=== PATIENT | female | born 1955 | race Caucasian/White ===

== ENCOUNTER 2020-05-12 12:58 | Observation (INO) ==
[2020-05-12] MEDS ORDERED: SODIUM CHLORIDE 0.9% 1000ML 1,000 ML IV STA (13:21)
[2020-05-12] MEDS ORDERED: FAMOTIDINE 20MG/5ML IV PUSH IV STA (13:21)
[2020-05-12] MEDS ORDERED: ONDANSETRON INJ 2 MG/ML 2 ML VIAL IV STA (13:21)
--- NOTE | 2020-05-12 13:26 | Emergency Department Note ---
Impression & Plan Acute cholecystitis, Epigastric abdominal pain ED Provider Note NAME: PRIYA MAK AGE: 64 SEX: F : 1955 ARRIVES VIA: Walk-In INFORMANT: [Patient] ED PROVIDER(S): [Blake Bae MD] CHIEF COMPLAINT: Abdominal pain HISTORY OF PRESENT ILLNESS: The patient is a 64-year-old female presents with 5 days of epigastric abdominal pain that radiates to the right ribs. The pain is a 7 on a scale of 1 out of 10 and constant. She notices it mostly at night when she is trying to sleep, she has not been able to sleep. There has been no nausea or vomiting but she has no appetite. She had some black stools but no bloody stools. She had a loose bowel movement today. She had chills but no fever. She has felt cold. There has been no cough or congestion. She has not been short of breath. No urinary complaints. She has no history of similar abdominal pain. She does have a history of reflux and she does intermittently use Prilosec. REVIEW OF SYSTEMS: See HPI for pertinent positives and negatives. A total of ten systems were reviewed and were otherwise negative. PMHx/PSHx: See Below SOCIAL HISTORY: See Below. PHYSICAL EXAM: GENERAL: Patient is in mild distress from pain. HEENT: No acute trauma, normocephalic atraumatic, mucous membranes moist, no nasal congestion, no scleral icterus. NECK: No stridor, no adenopathy, no meningismus, trachea is midline. LUNGS: Clear to auscultation bilaterally, no wheeze, no rhonchi, breath sounds equal. HEART: Without murmurs gallops or rubs, regular rate and rhythm. ABDOMEN: Soft, significantly tender in the epigastrium and right upper quadrant, bowel sounds positive, no hernias. EXTREMITIES: No cyanosis or edema, full range of motion of all the joints without pain or difficulty, no signs for acute trauma. NEUROLOGIC: Oriented x 3, no acute motor or sensory deficits, no focal weakness. SKIN: No rash, no jaundice, no diaphoresis. Rectal: Darker stool, heme-negative. DIFFERENTIAL DIAGNOSIS: Appendicitis, ovarian cyst, ovarian torsion, infections, diverticulitis, UTI, obstruction, mesenteric ischemia, aortic pathology, inflammatory bowel disease, renal colic, PUD, pancreatitis, biliary pathology, hernia, volvulus, constipation, as well as other pathologies. EMERGENCY DEPARTMENT COURSE/PROCEDURES: ECG: Indication was abdominal pain. The ECG shows a normal sinus rhythm with a rate of 75. There is no ST elevation, no PVCs. The QTc is 451. Continuous Cardiac Monitoring: An order was placed for continuous cardiac monitoring. The monitor shows a rate of 90 with normal sinus rhythm. MEDICAL DECISION MAKING: There is no leukocytosis or concerning anemia. There is a normal platelet count. Renal panel testing shows a slightly low potassium, no kidney failure. No liver enzyme elevation. No evidence for pancreatitis by our testing. ECG shows a sinus rhythm, no acute ischemia. Cardiac enzyme testing x1 is not consistent with acute cardiac injury. Covid testing returned negative. Chest film did not show pneumonia or free air. Abdominal and pelvis CT showed evid ence for acute cholecystitis. No bowel obstruction, no bowel perforation. On exam, the patient was quite uncomfortable with palpation of the right upper quadrant and epigastrium. She was not toxic or febrile. The patient was given IV saline, 1 L. She received IV Zosyn as empiric antibiotic coverage. She was given IV Zofran for nausea, IV morphine for pain. She received IV Pepcid. The patient has acute cholecystitis by history, exam and work-up. I did contact general surgery. The patient was seen in this ED by surgery and taken to the operating room. Case management has been consulted. The patient is aware of her findings. Past Med/Surg History Medical History Anxiety Depression GERD (gastroesophageal reflux disease) Hx of breast cancer dcis right breast no chemo/radiation Hyperlipidemia Hypothyroidism Osteoarthritis Sleep apnea no machine Surgical History History of hand surgery History of knee surgery Hx of arthroscopy right and left Hx of carpal tunnel repair right Hx of lumpectomy right breast Hx of tooth extraction Family History Mother Brain cancer Other Hypertension Denies family history of Ovarian cancer Breast cancer Colorectal cancer Social History Smoking Status: Never smoker Second Hand Exposure: No; Hx Alcohol Use: Yes Alcohol type: wine Hx Substance Use: No Preferred Language: German Communication Ability: Effective Reed Man Required: No Beliefs That Will Affect Care: None Current Living Situation: Spouse Feels Safe at Home: Yes Assistive Devices: Glasses Allergies Allergies Allergy/AdvReac Type Severity Reaction Status Date / Time No Known Allergies Allergy Verified 05/12/20 15:43 Home Meds Home Medications Medication Instructions Recorded Confirmed cholecalciferol (vitamin D3) 50 50 mcg PO DAILY 01/18/20 05/12/20 mcg (2,000 unit) capsule famotidine [Pepcid] 0 mg PO DAILY PRN 05/12/20 05/12/20 Previous Rx's Medication Instructions Recorded levothyroxine 75 mcg tablet 75 mcg PO DAILY #90 tab 05/16/19 sertraline 100 mg tablet 100 mg PO DAILY #90 tab 12/30/19 mecobalamin (vitamin B12) 1,000 1,000 mcg SUBLINGUAL DAILY #30 tab 01/18/20 mcg disintegrating tablet,sublingual Results & Data (ED) Vital Signs Vital Signs - 24 hr 05/12/20 13:01 05/12/20 13:29 05/12/20 15:03 Temperature 37.0 C Temperature Source Temporal Artery Scan Pulse Rate 89 90 Pulse Rate [Apical] Pulse Rhythm [Apical] Respiratory Rate 19 22 14 Respiratory Effort / Characteristics Non-Labored Non-Labored Respiratory Depth Normal Normal Respiratory Pattern Blood Pressure 122/70 Blood Pressure [Left Arm] 133/69 Blood Pressure Mean 87 Blood Pressure Mean [Left Arm] 90 Blood Pressure Position [Left Arm] Lying Pulse Oximetry 95 98 98 Oxygen Delivery Method Room Air Room Air Room Air Oxygen Flow Rate Sepsis Recent Fever Within 48 Hours No Sepsis New/Unexplained Change in Mental Status No Sepsis Action Taken by Nursing No Action Required 05/12/20 18:23 05/12/20 18:30 05/12/20 18:40 Temperature 36.5 C Temperature Source Temporal Artery Scan Temporal Artery Scan Temporal Artery Scan Pulse Rate Pulse Rate [Apical] 80 78 75 Pulse Rhythm [Apical] Regular Regular Regular Respiratory Rate 19 18 19 Respiratory Effort / Characteristics Non-Labored Spontaneous Non-Labored Spontaneous Non-Labored Spontaneous Respiratory Depth Normal Normal Normal Respiratory Pattern Regular Regular Regular Blood Pressure Blood Pressure [Left Arm] 110/69 122/60 120/59 L Blood Pressure Mean Blood Pressure Mean [Left Arm] 82 80 79 Blood Pressure Position [Left Arm] Semi-fowlers Semi-fowlers Semi-fowlers Pulse Oximetry 99 100 97 Oxygen Delivery Method Nasal Cannula Nasal Cannula Nasal Cannula Oxygen Flow Rate 4 4 3 Sepsis Recent Fever Within 48 Hours Sepsis New/Unexplained Change in Mental Status Sepsis Action Taken by Nursing 05/12/20 18:50 05/12/20 19:00 Temperature 36.5 C Temperature Source Temporal Artery Scan Temporal Artery Scan Pulse Rate Pulse Rate [Apical] 82 76 Pulse Rhythm [Apical] Regular Regular Respiratory Rate 18 21 Respiratory Effort / Characteristics Non-Labored Spontaneous Non-Labored Spontaneous Respiratory Depth Normal Normal Respiratory Pattern Regular Regular Blood Pressure Blood Pressure [Left Arm] 117/58 L 115/58 L Blood Pressure Mean Blood Pressure Mean [Left Arm] 77 77 Blood Pressure Position [Left Arm] Semi-fowlers Semi-fowlers Pulse Oximetry 97 97 Oxygen Delivery Method Nasal Cannula Nasal Cannula Oxygen Flow Rate 3 3 Sepsis Recent Fever Within 48 Hours Sepsis New/Unexplained Change in Mental Status Sepsis Action Taken by Intermediate Medications Current Medication List: was personally reviewed by me Laboratory Data Attestation: I reviewed the patient's lab results. Result diagrams: 05/12/20 13:25 05/12/20 13:25 Lab Results 05/12/20 05/12/20 05/12/20 Range/Units 13:25 13:25 15:37 WBC 9.81 (4.8-10.8) K/uL RBC 4.56 (4.2-5.4) M/uL Hgb 13.1 (12.0-16.0) g/dL Hct 37.6 (37-47) % MCV 82.5 (80-100) fL MCH 28.7 (25-34) pg MCHC 34.8 (32-36) g/dL RDW Std Deviation 41.8 (36.4-46.3) fL RDW Coeff of Veena 13.8 (11.5-14.5) % Plt Count 206 (130-400) K/uL MPV 8.5 (7.4-10.4) fL Immature Gran % (Auto) 0.2 % Neut % (Auto) 73.9 % Lymph % (Auto) 16.7 % [place] % (Auto) 8.5 % Eos % (Auto) 0.6 % Baso % (Auto) 0.1 % Neut # (Auto) 7.25 H (1.4-6.5) K/uL Lymph # (Auto) 1.64 (1.2-3.4) K/uL [place] # (Auto) 0.83 H (0.11-0.59) K/uL Eos # (Auto) 0.06 (0-0.5) K/uL Baso # (Auto) 0.01 (0-0.2) K/uL Immature Gran # (Auto) 0.02 (0.00-0.02) K/uL Sodium 133 L (136-145) mmol/L Potassium 3.4 L (3.5-5.1) mmol/L Chloride 99 (98-107) mmol/L Carbon Dioxide 27 (21-32) mmol/L Anion Gap 7.0 (3-11) BUN 11 (7-18) mg/dl Creatinine 0.85 (0.6-1.2) mg/dl Est Cr Clr Drug Dosing 55.1 ml/min Est GFR ( Amer) 82.8 Est GFR (Non-Af Amer) 71.4 BUN/Creatinine Ratio 13.5 (10-20) Glucose 105 H (70-99) mg/dl Calcium 9.0 (8.5-10.1) mg/dl Total Bilirubin 0.8 (0.2-1) mg/dl AST 22 (15-37) U/L ALT 24 (12-78) U/L Alkaline Phosphatase 63 (45-117) U/L Troponin I < 0.015 (0-0.045) ng/ml Total Protein 7.9 (6.4-8.2) gm/dl Albumin 3.7 (3.4-5.0) gm/dl Globulin 4.2 H (2.5-4.0) gm/dl Albumin/Globulin Ratio 0.9 (0.9-2) Lipase 99 (73-393) U/L COVID-19 Eval Order Covid19 IDNow [facility] SARS-CoV-2, RNA, NAAT (NEGATIVE) 05/12/20 Range/Units 15:37 WBC (4.8-10.8) K/uL RBC (4.2-5.4) M/uL Hgb (12.0-16.0) g/dL Hct (37-47) % MCV (80-100) fL MCH (25-34) pg MCHC (32-36) g/dL RDW Std Deviation (36.4-46.3) fL RDW Coeff of Veena (11.5-14.5) % Plt Count (130-400) K/uL MPV (7.4-10.4) fL Immature Gran % (Auto) % Neut % (Auto) % Lymph % (Auto) % [place] % (Auto) % Eos % (Auto) % Baso % (Auto) % Neut # (Auto) (1.4-6.5) K/uL Lymph # (Auto) (1.2-3.4) K/uL [place] # (Auto) (0.11-0.59) K/uL Eos # (Auto) (0-0.5) K/uL Baso # (Auto) (0-0.2) K/uL Immature Gran # (Auto) (0.00-0.02) K/uL Sodium (136-145) mmol/L Potassium (3.5-5.1) mmol/L Chloride (98-107) mmol/L Carbon Dioxide (21-32) mmol/L Anion Gap (3-11) BUN (7-18) mg/dl Creatinine (0.6-1.2) mg/dl Est Cr Clr Drug Dosing ml/min Est GFR ( Amer) Est GFR (Non-Af Amer) BUN/Creatinine Ratio (10-20) Glucose (70-99) mg/dl Calcium (8.5-10.1) mg/dl Total Bilirubin (0.2-1) mg/dl AST (15-37) U/L ALT (12-78) U/L Alkaline Phosphatase (45-117) U/L Troponin I (0-0.045) ng/ml Total Protein (6.4-8.2) gm/dl Albumin (3.4-5.0) gm/dl Globulin (2.5-4.0) gm/dl Albumin/Globulin Ratio (0.9-2) Lipase (73-393) U/L COVID-19 Eval Order SARS-CoV-2, RNA, NAAT NEGATIVE (NEGATIVE) Administered Medications Morphine Sulfate (Morphine Sulfate 4 Mg/Ml 1 Ml Carp\Vial) 4 mg IV Q15M PRN PRN Reason: Pain Stop: 05/26/20 13:20 Last Admin: 05/12/20 15:12 Dose: 4 mg Documented by: [id number] Admin: 05/12/20 14:08 Dose: 4 mg Documented by: [id number] Admin: 05/12/20 13:38 Dose: 4 mg Documented by: [id number] Discontinued Medications Bupivacaine HCl (Bupivacaine 0.5 % 5 Mg/1 Ml Mpf 30ml Vial) Confirm Administered Dose 30 ml .ROUTE .STK-MED ONE Stop: 05/12/20 15:59 Last Admin: 05/12/20 17:51 Dose: 18 ml Documented by: [id number] Cefazolin Sodium (Cefazolin 250 Mg/Ml 1 Gm Vial) Confirm Administered Dose 1,000 mg .ROUTE .STK-MED ONE Stop: 05/12/20 15:59 Last Admin: 05/12/20 17:52 Dose: 1,000 mg Documented by: [id number] Famotidine (Famotidine 20mg/5ml Iv Push) 20 mg IV ONE STA Stop: 05/12/20 13:22 Last Admin: 05/12/20 13:34 Dose: 20 mg Documented by: [id number] Heparin Sodium (Porcine) (Heparin Sod (Porcine) 5,000 Units/Ml Vial) Confirm Administered Dose 5,000 units .ROUTE .STK-MED ONE Stop: 05/12/20 15:59 Last Admin: 05/12/20 17:52 Dose: 5,000 units Documented by: [id number] Sodium Chloride (Nss 1000ml) 1,000 mls @ 999 mls/hr IV .Q1H1M STA Stop: 05/12/20 14:21 Last Admin: 05/12/20 13:33 Dose: 999 mls/hr Documented by: [id number] Piperacillin Sod/Tazobactam Sod (Zosyn) 4.5 gm in 120 mls @ 240 mls/hr IV NOW ONE Stop: 05/12/20 15:20 Last Admin: 05/12/20 16:06 Dose: 240 mls/hr Documented by: [id number] Ioversol (Ioversol 100ml) 94 ml IV ONCE ONE Stop: 05/12/20 14:23 Last Admin: 05/12/20 14:22 Dose: 94 ml Documented by: [id number] Ondansetron HCl (Ondansetron Inj 2 Mg/Ml 2 Ml Vial) 4 mg IV NOW STA Stop: 05/12/20 13:22 Last Admin: 05/12/20 13:35 Dose: 4 mg Documented by: [id number] Imaging Data Radiologist's Impression: XR chest 1V portable HISTORY: 64 years-old Female abd pain chest and abdominal pain COMPARISON: Chest radiographs 07/31/2011 TECHNIQUE: Portable AP view of the chest FINDINGS: Cardiomediastinal and hilar silhouettes are within normal limits. Small hiatal hernia. Moderate hemidiaphragmatic elevation. No pneumothorax, pleural effusion or overt pulmonary edema. Mild right basilar opacities. Left shoulder rotator cuff calcific tendinosis. Degenerative changes of the shoulders and spine. IMPRESSION: 1. Mild right basilar opacities favor atelectasis. 2. Cardiomegaly. 3. Small hiatal hernia. ABDOMEN AND PELVIS CT WITH IV CONTRAST CT DOSE: 448.46 mGy.cm HISTORY: Acute epigastric abdominal pain with chills epig abd pain, chills TECHNIQUE: Multiaxial CT images of the abdomen and pelvis were performed following the IV administration of 94 cc of Optiray 320, A dose lowering technique was utilized adhering to the principles of ALARA. COMPARISON STUDY: None. FINDINGS: The imaged inferior cardiac chambers are mildly enlarged. Mild bibasilar ground glass densities suggest atelectasis. There is no pneumatosis or pneumoperitoneum. The spleen is enlarged measuring 16.2 cm in length. Unremarkable pancreas and adrenal glands. Gallbladder is distended measuring up to 9.3 cm and demonstrates wall thickening measuring up to 6 mm. Pericholecystic stranding with trace edema. No definite cholelithiasis. There is wall thickening of the common bile duct. No biliary ductal dilation. Unremarkable liver. There is patency of the hepatic and portal veins. Unremarkable kidneys. Urinary bladder is within normal limits. Unremarkable uterus. No adnexal mass lesions. Numerous phleboliths of the pelvis. No abdominal aortic aneurysm or adenopathy. Small hiatal hernia. Distal esophageal wall thickening. Prominent periesophageal lymph nodes measuring up to 7 mm. Mild wall thickening of the distal stomach and proximal duodenum is likely reactive. Air-fluid levels are noted within the right hemicolon and also within a few loo ps of nondilated small bowel. Fluid-filled appendix measures up to 6 mm and demonstrates air within the lumen. No definite evidence of acute appendicitis. Unremarkable soft tissues. No acute fracture. IMPRESSION: 1. Distended gallbladder with wall thickening and pericholecystic edema/trace free fluid is compatible with acute cholecystitis. 2. Mild wall thickening of the common bile duct may be reactive or reflect associated cholangitis. No biliary ductal dilation. 3. No bowel obstruction or bowel wall thickening. 4. Noninflamed appendix. 5. Small hiatal hernia. 6. Splenomegaly. Discharge Plan Visit Data Chief Complaint: Abdominal Pain Stated Complaint: AB PAIN ED Provider: Blake Bae Discharge Problem: Acute cholecystitis, Epigastric abdominal pain Patient Disposition: Admitted As Inpatient Condition: Fair Discharge Instructions Interventions: ED Discharge Assessment Last Done: 05/12/20 16:18 Forms Stand Alone Forms: [employer] Prescriptions Prescriptions: No Action levothyroxine 75 mcg tablet 75 mcg PO DAILY Qty: 90 RF: 3 sertraline 100 mg tablet 100 mg PO DAILY Qty: 90 RF: 3 cholecalciferol (vitamin D3) 50 mcg (2,000 unit) capsule 50 mcg PO DAILY RF: 0 mecobalamin (vitamin B12) 1,000 mcg tablet,disintegrating 1,000 mcg sublingual DAILY Qty: 30 RF: 0 famotidine [Pepcid] 20 mg Tablet 0 mg PO DAILY PRN (Reason: Abdominal Pain) RF: 0 Referrals Referrals: Kyra Uribe MD [Primary Care Provider] -
[2020-05-12 13:38] LABS: Basophils # (auto) 0.01 K/uL (0-0.2); Basophils % (auto) 0.1 %; Eosinophils # (auto) 0.06 K/uL (0-0.5); Eosinophils % (auto) 0.6 %; Hematocrit (blood only) 37.6 % (37-47); Hemoglobin 13.1 g/dL (12.0-16.0); Immature Granulocytes # (auto) 0.02 K/uL (0.00-0.02); Immature Granulocytes % (auto) 0.2 %; Lymphocytes # (auto) 1.64 K/uL (1.2-3.4); Lymphocytes % (auto) 16.7 %; Mean Corpuscular Hemoglobin 28.7 pg (25-34); Mean Corpuscular Hgb Conc 34.8 g/dL (32-36); Mean Corpuscular Volume 82.5 fL (80-100); Mean Platelet Volume 8.5 fL (7.4-10.4); Monocytes # (auto) 0.83 K/uL (0.11-0.59); Monocytes % (auto) 8.5 %; Neutrophils # (auto) 7.25 K/uL (1.4-6.5); Neutrophils % (auto) 73.9 %; Platelet Count 206 K/uL (130-400); RDW Coefficient of Variation 13.8 % (11.5-14.5); RDW Standard Deviation 41.8 fL (36.4-46.3); Red Blood Count 4.56 M/uL (4.2-5.4); White Blood Count 9.81 K/uL (4.8-10.8)
[2020-05-12] MEDS: MoRPHine SULFATE 4 MG/ML 1 ML CARP\\VIAL IV PRN ×3 (13:38→15:12)
--- NOTE | 2020-05-12 14:04 | XRay Report ---
XR chest 1V portable HISTORY: 64 years-old Female abd pain chest and abdominal pain COMPARISON: Chest radiographs 07/31/2011 TECHNIQUE: Portable AP view of the chest FINDINGS: Cardiomediastinal and hilar silhouettes are within normal limits. Small hiatal hernia. Moderate hemid iaphragmatic elevation. No pneumothorax, pleural effusion or overt pulmonary edema. Mild right basila r opacities. Left shoulder rotator cuff calcific tendinosis. Degenerative changes of the shoulders an d spine. IMPRESSION: 1. Mild right basilar opacities favor atelectasis. 2. Cardiomegaly. 3. Small hiatal hernia. ACT 112: Negative or not required by law. The above report was generated using voice recognition software. It may contain grammatical, syntax o r spelling errors. Electronically signed by: Tomas Chaudhary M.D. 05/12/2020 2:02 PM
[2020-05-12 14:06] LABS: Alanine Aminotransferase 24 U/L (12-78); Albumin Level 3.7 gm/dl (3.4-5.0); Aspartate Aminotransferase 22 U/L (15-37); BUN Creatinine Ratio 13.5 (10-20); Blood Urea Nitrogen 11 mg/dl (7-18); Carbon Dioxide 27 mmol/L (21-32); Chloride 99 mmol/L (98-107); Creatinine Clr Calc Pharmacy 55.1 ml/min; Est GFR (African American) 82.8; Est GFR (Non-African American) 71.4; Glucose 105 mg/dl (70-99); Lipase 99 U/L (73-393); Potassium 3.4 mmol/L (3.5-5.1); Sodium 133 mmol/L (136-145)
[2020-05-12 14:10] LABS: Albumin Globulin Ratio 0.9 (0.9-2); Alkaline Phosphatase 63 U/L (45-117); Bilirubin,Total 0.8 mg/dl (0.2-1); Globulin 4.2 gm/dl (2.5-4.0); Total Protein 7.9 gm/dl (6.4-8.2); Troponin I < 0.015 ng/ml (0-0.045)
[2020-05-12] MEDS ORDERED: OPTIRAY 320 100ml IV ONE (14:22)
--- NOTE | 2020-05-12 14:41 | CT Scan Report ---
ABDOMEN AND PELVIS CT WITH IV CONTRAST CT DOSE: 448.46 mGy.cm HISTORY: Acute epigastric abdominal pain with chills epig abd pain, chills TECHNIQUE: Multiaxial CT images of the abdomen and pelvis were performed following the IV administrat ion of 94 cc of Optiray 320, A dose lowering technique was utilized adhering to the principles of AL WANDA. COMPARISON STUDY: None. FINDINGS: The imaged inferior cardiac chambers are mildly enlarged. Mild bibasilar ground glass densi ties suggest atelectasis. There is no pneumatosis or pneumoperitoneum. The spleen is enlarged measuri ng 16.2 cm in length. Unremarkable pancreas and adrenal glands. Gallbladder is distended measuring up to 9.3 cm and demonstrates wall thickening measuring up to 6 mm. Pericholecystic stranding with trac e edema. No definite cholelithiasis. There is wall thickening of the common bile duct. No biliary jaquan page dilation. Unremarkable liver. There is patency of the hepatic and portal veins. Unremarkable kidneys. Urinary bladder is within normal limits. Unremarkable uterus. No adnexal mass l esions. Numerous phleboliths of the pelvis. No abdominal aortic aneurysm or adenopathy. Small hiatal hernia. Distal esophageal wall thickening. Prominent periesophageal lymph nodes measuring up to 7 mm. Mild wall thickening of the distal stomach and proximal duodenum is likely reactive. Air-fluid level s are noted within the right hemicolon and also within a few loops of nondilated small bowel. Fluid-f illed appendix measures up to 6 mm and demonstrates air within the lumen. No definite evidence of acu te appendicitis. Unremarkable soft tissues. No acute fracture. IMPRESSION: 1. Distended gallbladder with wall thickening and pericholecystic edema/trace free fluid is compatibl e with acute cholecystitis. 2. Mild wall thickening of the common bile duct may be reactive or reflect associated cholangitis. No biliary ductal dilation. 3. No bowel obstruction or bowel wall thickening. 4. Noninflamed appendix. 5. Small hiatal hernia. 6. Splenomegaly. ACT 112: Negative or not required by law. The above report was generated using voice recognition software. It may contain grammatical, syntax o r spelling errors. Electronically signed by: Tomas Chaudhary M.D. 05/12/2020 2:40 PM
[2020-05-12] MEDS ORDERED: PIPERACILL/TAZOBAC CONSULT ACTIVE PRN (14:51)
[2020-05-12] MEDS ORDERED: PIPERACILLIN/TAZOBACTAM 4.5 GM/120 ML BAG IV ONE (14:51)
[2020-05-12] MEDS ORDERED: HEPARIN SOD (PORCINE) 5,000 UNITS/ML VIAL ONE (15:58)
[2020-05-12] MEDS ORDERED: BUPIVACAINE 0.5 % 5 MG/1 ML MPF 30ML VIAL ONE (15:58)
--- NOTE | 2020-05-12 16:09 | History & Physical Report ---
Date of Service May 12, 2020 Assessment & Plan (1) Cholecystitis: Admission and Anticipated Discharge Date Admission Date: This patient has right upper quadrant pain and tenderness and a CT scan indicative of acute cholecystitis. Her white blood cell count is not elevated however. We discussed the options of antibiotics versus performing a laparoscopic cholecystectomy with the possible need to convert to an open procedure especially since she has had symptoms for 5 days. I explained to her the possible complications and answered her questions. She has signed a consent form. History of Present Illness Chief Complaint: Right upper quadrant abdominal pain Primary Care Provider: Kyra Uribe MD This 64-year-old female presented to the emergency room with a complaint of pain in the right upper quadrant that has been present now for 5 days. Began as a dull ache about over last evening and today the pain became much more sharp and less bearable. She has not had pain like this before. She did have some nausea. She tried to eat some toast yesterday and vomited. She has not had any hematemesis. There is no history of right upper quadrant pain but she does have a long history of GERD. She has not had any change in her bowel habits. She denies melena hematochezia. She has not had any urinary symptoms. Allergies Allergy/AdvReac Type Severity Reaction Status Date / Time No Known Allergies Allergy Verified 05/12/20 15:43 Home Medications Medication Instructions Recorded Confirmed Type levothyroxine 75 mcg tablet 75 mcg PO DAILY #90 tab 05/16/19 05/12/20 Rx sertraline 100 mg tablet 100 mg PO DAILY #90 tab 12/30/19 05/12/20 Rx cholecalciferol (vitamin D3) 50 50 mcg PO DAILY 01/18/20 05/12/20 History mcg (2,000 unit) capsule mecobalamin (vitamin B12) 1,000 1,000 mcg SUBLINGUAL DAILY #30 tab 01/18/20 05/12/20 Rx mcg disintegrating tablet,sublingual famotidine [Pepcid] 0 mg PO DAILY PRN 05/12/20 05/12/20 History Past Med/Surg History Medical History (Updated 05/12/20 @ 16:10 by Eldon Conklin MD) Anxiety Depression GERD (gastroesophageal reflux disease) Hx of breast cancer dcis right breast no chemo/radiation Hyperlipidemia Hypothyroidism Osteoarthritis Sleep apnea no machine Surgical History History of hand surgery History of knee surgery Hx of arthroscopy right and left Hx of carpal tunnel repair right Hx of lumpectomy right breast Hx of tooth extraction Family History Mother Brain cancer Other Hypertension Denies family history of Ovarian cancer Breast cancer Colorectal cancer Social History Smoking Status: Never smoker Second Hand Exposure: No; Hx Alcohol Use: Yes Alcohol type: wine Hx Substance Use: No Preferred Language: Turkish Communication Ability: Effective Senior Account Clerk Required: No Beliefs That Will Affect Care: None Current Living Situation: Spouse Feels Safe at Home: Yes Assistive Devices: Glasses Review of Systems Review of Systems: All systems reviewed & are unremarkable except as noted in HPI & below Physical Exam Constitutional: no acute distress Neck: trachea midline, no thyromegaly Respiratory: normal respiratory effort, lungs clear to auscultation Cardiovascular: Rate/Rhythm: regular rate and regular rhythm Gastrointestinal (Abdomen): Inspection/Auscultation: normal bowel sounds; abdomen not distended Percussion/Palpation: + abdomen tender (Very tender in the right upper quadrant to minimal palpation) and abdomen soft Skin: no rashes, warm and dry Results & Data Results & Data ([facility]) Vital Signs (Past 12 Hours) Vital Signs Temp Pulse Resp BP BP Pulse Ox 05/12/20 15:03 14 133/69 98 05/12/20 13:29 90 22 98 05/12/20 13:01 37.0 C 89 19 122/70 95 Laboratory Results 05/12/20 05/12/20 05/12/20 Range/Units 15:37 15:37 13:25 WBC (4.8-10.8) K/uL RBC (4.2-5.4) M/uL Hgb (12.0-16.0) g/dL Hct (37-47) % MCV (80-100) fL MCH (25-34) pg MCHC (32-36) g/dL RDW Std Deviation (36.4-46.3) fL RDW Coeff of Veena (11.5-14.5) % Plt Count (130-400) K/uL MPV (7.4-10.4) fL Immature Gran % (Auto) % Neut % (Auto) % Lymph % (Auto) % Labette % (Auto) % Eos % (Auto) % Baso % (Auto) % Neut # (Auto) (1.4-6.5) K/uL Lymph # (Auto) (1.2-3.4) K/uL Labette # (Auto) (0.11-0.59) K/uL Eos # (Auto) (0-0.5) K/uL Baso # (Auto) (0-0.2) K/uL Immature Gran # (Auto) (0.00-0.02) K/uL Sodium 133 L (136-145) mmol/L Potassium 3.4 L (3.5-5.1) mmol/L Chloride 99 (98-107) mmol/L Carbon Dioxide 27 (21-32) mmol/L Anion Gap 7.0 (3-11) BUN 11 (7-18) mg/dl Creatinine 0.85 (0.6-1.2) mg/dl Est Cr Clr Drug Dosing 55.1 ml/min Est GFR ( Amer) 82.8 Est GFR (Non-Af Amer) 71.4 BUN/Creatinine Ratio 13.5 (10-20) Glucose 105 H (70-99) mg/dl Calcium 9.0 (8.5-10.1) mg/dl Total Bilirubin 0.8 (0.2-1) mg/dl AST 22 (15-37) U/L ALT 24 (12-78) U/L Alkaline Phosphatase 63 (45-117) U/L Troponin I < 0.015 (0-0.045) ng/ml Total Protein 7.9 (6.4-8.2) gm/dl Albumin 3.7 (3.4-5.0) gm/dl Globulin 4.2 H (2.5-4.0) gm/dl Albumin/Globulin Ratio 0.9 (0.9-2) Lipase 99 (73-393) U/L COVID-19 Eval [facility] SARS-CoV-2, RNA, NAAT NEGATIVE (NEGATIVE) 05/12/20 Range/Units 13:25 WBC 9.81 (4.8-10.8) K/uL RBC 4.56 (4.2-5.4) M/uL Hgb 13.1 (12.0-16.0) g/dL Hct 37.6 (37-47) % MCV 82.5 (80-100) fL MCH 28.7 (25-34) pg MCHC 34.8 (32-36) g/dL RDW Std Deviation 41.8 (36.4-46.3) fL RDW Coeff of Veena 13.8 (11.5-14.5) % Plt Count 206 (130-400) K/uL MPV 8.5 (7.4-10.4) fL Immature Gran % (Auto) 0.2 % Neut % (Auto) 73.9 % Lymph % (Auto) 16.7 % Labette % (Auto) 8.5 % Eos % (Auto) 0.6 % Baso % (Auto) 0.1 % Neut # (Auto) 7.25 H (1.4-6.5) K/uL Lymph # (Auto) 1.64 (1.2-3.4) K/uL Labette # (Auto) 0.83 H (0.11-0.59) K/uL Eos # (Auto) 0.06 (0-0.5) K/uL Baso # (Auto) 0.01 (0-0.2) K/uL Immature Gran # (Auto) 0.02 (0.00-0.02) K/uL Sodium (136-145) mmol/L Potassium (3.5-5.1) mmol/L Chloride (98-107) mmol/L Carbon Dioxide (21-32) mmol/L Anion Gap (3-11) BUN (7-18) mg/dl Creatinine (0.6-1.2) mg/dl Est Cr Clr Drug Dosing ml/min Est GFR ( Amer) Est GFR (Non-Af Amer) BUN/Creatinine Ratio (10-20) Glucose (70-99) mg/dl Calcium (8.5-10.1) mg/dl Total Bilirubin (0.2-1) mg/dl AST (15-37) U/L ALT (12-78) U/L Alkaline Phosphatase (45-117) U/L Troponin I (0-0.045) ng/ml Total Protein (6.4-8.2) gm/dl Albumin (3.4-5.0) gm/dl Globulin (2.5-4.0) gm/dl Albumin/Globulin Ratio (0.9-2) Lipase (73-393) U/L COVID-19 Eval Order SARS-CoV-2, RNA, NAAT (NEGATIVE) Diagnostic Findings ABDOMEN AND PELVIS CT WITH IV CONTRAST CT DOSE: 448.46 mGy.cm HISTORY: Acute epigastric abdominal pain with chills epig abd pain, chills TECHNIQUE: Multiaxial CT images of the abdomen and pelvis were performed following the IV administration of 94 cc of Optiray 320, A dose lowering technique was utilized adhering to the principles of ALARA. COMPARISON STUDY: None. FINDINGS: The imaged inferior cardiac chambers are mildly enlarged. Mild bibasilar ground glass densities suggest atelectasis. There is no pneumatosis or pneumoperitoneum. The spleen is enlarged measuring 16.2 cm in length. Unremarkable pancreas and adrenal glands. Gallbladder is distended measuring up to 9.3 cm and demonstrates wall thickening measuring up to 6 mm. Pericholecystic stranding with trace edema. No definite cholelithiasis. There is wall thickening of the common bile duct. No biliary ductal dilation. Unremarkable liver. There is patency of the hepatic and portal veins. Unremarkable kidneys. Urinary bladder is within normal limits. Unremarkable uterus. No adnexal mass lesions. Numerous phleboliths of the pelvis. No abdominal aortic aneurysm or adenopathy. Small hiatal hernia. Distal esophageal wall thickening. Prominent periesophageal lymph nodes measuring up to 7 mm. Mild wall thickening of the distal stomach and proximal duodenum is likely reactive. Air-fluid levels are noted within the right hemicolon and also within a few loops of nondilated small bowel. Fluid-filled appendix measures up to 6 mm and demonstrates air within the lumen. No definite evidence of acute appendicitis. Unremarkable soft tissues. No acute fracture. IMPRESSION: 1. Distended gallbladder with wall thickening and pericholecystic edema/trace free fluid is compatible with acute cholecystitis. 2. Mild wall thickening of the common bile duct may be reactive or reflect associated cholangitis. No biliary ductal dilation. 3. No bowel obstruction or bowel wall thickening. 4. Noninflamed appendix. 5. Small hiatal hernia. 6. Splenomegaly
[2020-05-12] MEDS ORDERED: MIDAZOLAM HCL 1 MG/ML 2ML VIAL ONE (16:12)
[2020-05-12] MEDS ORDERED: DEXAMETHASONE SOD INJ 4 MG/ML VIAL ONE (16:13)
[2020-05-12] MEDS ORDERED: fentaNYL citrate 100 MCG/2 ML VIAL ONE ×2 (16:13→17:49)
[2020-05-12] MEDS ORDERED: PROPOFOL IV EMULSION 10 MG/ML 20 ML VIAL IV ONE (16:13)
[2020-05-12] MEDS ORDERED: ONDANSETRON INJ 2 MG/ML 2 ML VIAL ONE (16:13)
[2020-05-12] MEDS ORDERED: ROCURONIUM BROMIDE 10 MG/ML 5 ML VIAL IV ONE ×5 (16:13)
[2020-05-12] MEDS ORDERED: LIDOCAINE HCL 2% 2 ML VIAL/AMP(20MG/ML) INFIL ONE (16:14)
[2020-05-12] MEDS ORDERED: GLYCOPYRROLATE 0.2 MG/ML VIAL ONE (16:14)
[2020-05-12] MEDS ORDERED: NEOSTIGMINE METHYLSULFATE 5 MG/5 ML SYR ONE (16:14)
--- NOTE | 2020-05-12 16:28 | Anesthesiology Consultation ---
Date of Service May 12, 2020 Assessment & Plan Chart Review Chart Review: Acceptable Risk for Surgery Consults Requested none History Surgery Operation Date: 05/12/20 17:00 Proposed Procedures p Laparoscopic Cholecystectomy - Eldon Conklin MD Height/Weight Height: 4 ft 11 in Weight: 69.2 kg Allergies Allergy/AdvReac Type Severity Reaction Status Date / Time No Known Allergies Allergy Verified 05/12/20 15:43 Medications Home Medications Medication Instructions Recorded Confirmed Last Taken levothyroxine 75 mcg tablet 75 mcg PO DAILY #90 tab 05/16/19 05/12/20 05/12/20 sertraline 100 mg tablet 100 mg PO DAILY #90 tab 12/30/19 05/12/20 05/12/20 cholecalciferol (vitamin D3) 50 50 mcg PO DAILY 01/18/20 05/12/20 05/12/20 mcg (2,000 unit) capsule mecobalamin (vitamin B12) 1,000 1,000 mcg SUBLINGUAL DAILY #30 tab 01/18/20 05/12/20 05/12/20 mcg disintegrating tablet,sublingual famotidine [Pepcid] 0 mg PO DAILY PRN 05/12/20 05/12/20 05/12/20 Active Medications Generic Name Dose Route Start Last Admin Trade Name Freq PRN Reason Stop Dose Admin Morphine Sulfate 4 mg 05/12/20 13:21 05/12/20 15:12 Morphine Sulfate 4 Mg/Ml 1 Ml Carp\Vial IV 05/26/20 13:20 4 mg Q15M PRN Administration Pain NPO Date Last Intake of Fluids: 05/11/20 Date Last Intake of Solids: 05/11/20 Past Medical History Medical History (Updated 05/12/20 @ 16:10 by Eldon Conklin MD) Anxiety Depression GERD (gastroesophageal reflux disease) Hx of breast cancer dcis right breast no chemo/radiation Hyperlipidemia Hypothyroidism Osteoarthritis Sleep apnea no machine Past Family History Family History Mother Brain cancer Other Hypertension Denies family history of Ovarian cancer Breast cancer Colorectal cancer Past Surgical History Surgical History History of hand surgery History of knee surgery Hx of arthroscopy right and left Hx of carpal tunnel repair right Hx of lumpectomy right breast Hx of tooth extraction Social History Smoking Status: Never smoker Hx Alcohol Use: Yes Alcohol type: wine alcohol intake frequency: a few times a week Hx Substance Use: No substance use type: does not use Physical Exam Vital Signs Last Vital Signs Temp 37.0 C 05/12/20 13:01 Pulse 90 05/12/20 13:29 Resp 14 05/12/20 15:03 BP 133/69 05/12/20 15:03 Pulse Ox 98 05/12/20 15:03 Testing Laboratory Results 05/12/20 13:25 05/12/20 13:25
[2020-05-12] MEDS ORDERED: ePHEDrine sulfate 50 MG/ML SYR ONE (17:07)
[2020-05-12] MEDS ORDERED: ePHEDrine sulfate 50 MG/ML AMP IV PRN (17:37)
[2020-05-12] MEDS ORDERED: ATROPINE SULFATE 0.1 MG/ML 10ML SYR IV PRN (17:37)
[2020-05-12] MEDS ORDERED: ONDANSETRON INJ 2 MG/ML 2 ML VIAL IV PRN (17:37)
[2020-05-12] MEDS ORDERED: HYDROmorphone INJ 2 MG/ML SYR/VIAL IV PRN (17:37)
[2020-05-12] MEDS ORDERED: fentaNYL citrate 100 MCG/2 ML VIAL IV PRN (17:37)
--- NOTE | 2020-05-12 18:15 | Post Operative Brief Note ---
Immediate Post Op Note v1 Date of Surgery May 12, 2020 Pre & Post Diagnosis Operation Date: 05/12/20 17:00 Pre-Op Diagnosis: Cholecystitis Post-Op Diagnosis: Cholecystitis I identified the patient and participated in the time-out.: Yes Procedure Operation Date: 05/12/20 17:00 Actual Procedures p Laparoscopic Cholecystectomy(Not Applicable) - Eldon Conklin MD Surgeon Eldon Conklin MD Tunnel Worker None Estimated Blood Loss 10 Findings Consistent with Post-Op Diagnosis
--- NOTE | 2020-05-12 18:51 | Anesthesiology Progress Note ---
Date of Service May 12, 2020 Anesthesia Post Procedure Vital Signs Vital Signs: Temp Pulse Pulse Resp BP BP Pulse Ox 05/12/20 18:40 75 19 120/59 L 97 05/12/20 18:30 78 18 122/60 100 05/12/20 18:23 36.5 C 80 19 110/69 99 05/12/20 15:03 14 133/69 98 05/12/20 13:29 90 22 98 05/12/20 13:01 37.0 C 89 19 122/70 95 Pain Intensity Abdomen: Pain Intensity: 7 Transfer of Care Handoff Completed per policy Notes Mental Status: alert / awake / arousable and participated in evaluation Patient Amnestic to Procedure: Yes Nausea / Vomiting: adequately controlled Pain: adequately controlled Airway Patency, RR, SpO2: stable & adequate BP & HR: stable & adequate Hydration State: stable & adequate Anesthetic Complications: no major complications apparent
[2020-05-12] MEDS ORDERED: MoRPHine SULFATE 4 MG/ML 1 ML CARP\\VIAL IV PRN (19:59)
[2020-05-12] MEDS: cefOXitin 2,000 MG in DEXTROSE 5% 50 ML IV SCH (20:39)
[2020-05-12] MEDS: SODIUM CHLORIDE 0.9% 1000ML 1,000 ML IV SCH (20:39)
[2020-05-12 22:27] LABS: Appearance Urine Clear (Clear); Bacteria Urine Automated Negative (Negative); Bilirubin Urine Negative (Negative); Blood Urine 1+ (Negative); Cast Urine Automated 0 /lpf (0-5); Color Urine Yellow; Epithelial Cell Urine Auto >30 /lpf (0-5); Glucose Urine UA Negative (Negative); Ketones Urine Negative (Negative); Leukocyte Esterase Urine Negative (Negative); Nitrite Urine Negative (Negative); Protein Urine Negative (Negative); RBC Urine Automated 0-4 /hpf (0-4); Specific Gravity Urine 1.012 (1.000-1.030); Urobilinogen Urine Negative (Negative); pH Urine 5.5 (4.5-7.5)
--- NOTE | 2020-05-13 03:29 | Operative Report (OR) ---
DATE OF OPERATION: 05/12/2020 PREOPERATIVE DIAGNOSIS: Acute cholecystitis. POSTOPERATIVE DIAGNOSES: Cholelithiasis and acute cholecystitis. PROCEDURE: Laparoscopic cholecystectomy. SURGEON: Eldon Conklin MD FINDINGS: The gallbladder was dilated. The wall was thickened. The cystic duct was mildly dilated. There were stones within the lumen of the gallbladder. There was a lot of inflammatory response around the gallbladder, although no adhesions. There was a lot of edema within the tissues around the gallbladder. The liver was of normal size and contour and the visible bowel appeared normal. TECHNIQUE: The patient was given a general anesthetic and the area was prepped and draped in the usual sterile fashion. Trocar sites below the umbilicus were chosen and the skin was anesthetized with 0.5% Marcaine. Skin incision was made and was carried down through the subcutaneous tissue to the fascia which was grasped with 2 Perri clamps and incised between. The peritoneum was identified, incised and introducer was placed bluntly. The abdomen was then insufflated to a pressure of 15 mmHg with carbon dioxide. The sites for the upper midline, midclavicular and anterior axillary introducers were chosen. The skin in layers were anesthetized with the same local. Skin incisions were made and the introducers were placed under direct vision through those incisions. I could not grasp the gallbladder for traction and some of the drainage needle was passed under direct vision. The tip of the needle was placed into the gallbladder. The gallbladder was drained. There was white bile that returned. The gallbladder was then able to be grasped. I then was able to elevate the infundibulum of the gallbladder and opened the thickened peritoneum beneath it. I then opened the peritoneum working laterally up along the infundibulum to the body of the gallbladder. I then was able to separate the wall of the gallbladder away from the liver on that lateral side. I then worked anteriorly over the anterior surface. I peeled the tissues towards the common bile duct. I was able to identify the cystic duct. I then opened the triangle of Calot dividing that, the thickened peritoneum up along the liver as well, which allowed for better mobility. Further dissection along the medial wall of the cystic duct was performed. I used some hydrodissection as well and that established a plane behind the cystic duct. I then dissected the liver away from the gallbladder on that medial side and then posterior to it created an adequate window and allowed me to confirm the cystic duct gallbladder junction. Two clips were placed on the proximal cystic duct, one near the gallbladder and it was divided. The neck of the gallbladder was elevated and further dissection was carried out posterior to that. The cystic artery was seen posterior medial to where the cystic duct had been. The gallbladder was dissected away from the liver on the lateral two-thirds and then the peritoneum was divided up along the body medially, which allowed better mobility and allowed me then to establish a plane behind the cystic artery. It was clipped twice proximally and once near the gallbladder and divided. The gallbladder was then peeled off the liver bed and in doing so, I encountered what was either a large lymphatic or small posterior branch of the artery. That was isolated, clipped and divided. The gallbladder was then peeled off the liver bed. There was not a good plane of dissection and some of that dissection had to be done millimeter by millimeter. Once the gallbladder was completely freed, it was placed into an Endobag and brought out through the upper midline incision. I opened the gallbladder and removed any remaining bile and crushed and remove the stones in order to extract the gallbladder, but that was accomplished within the bag. Then introducer was replaced and the liver edge was elevated. The subhepatic space was irrigated. Irrigation was removed. There was one small area of oozing from the gallbladder bed of the liver that was easily controlled with cautery. The subdiaphragmatic and subhepatic spaces were further irrigated. Irrigation was removed and that was repeated until the return was clear. The gallbladder bed of the liver was again inspected and there was no bleeding. The previously placed clips were inspected and were intact. Due to the raw surface area in the gallbladder bed of the liver, I filled it with FloSeal. The gas was allowed to escape and introducers were removed. Fascia of the umbilical and upper midline introducer sites was closed with interrupted 0 Vicryl and the skin of all the incisions was closed with 4-0 Monocryl in either an interrupted or running subcuticular fashion. The skin was further anesthetized. The skin was cleansed, dried, benzoin placed, Steri-Strips applied. Estimated blood loss was 10 mL Sponge, needle and instrument counts were correct prior to closure. The patient tolerated the surgical procedure without complication and was transferred to recovery. I attest to the content of the Intraoperative Record and any orders documented therein. Any exception s are noted below.
[2020-05-13] MEDS: oxyCODONE/ACETAMINOPHEN 5mg/325mg TAB PO PRN ×3 (04:52→19:44)
[2020-05-13] MEDS: cefOXitin 2,000 MG in DEXTROSE 5% 50 ML IV SCH ×2 (04:53→13:43)
[2020-05-13] MEDS: LEVOTHYROXINE SODIUM 75 MCG TABLET PO SCH (05:34)
[2020-05-13] MEDS: SERTRALINE HCL 100 MG TABLET PO SCH (08:33)
--- NOTE | 2020-05-13 11:35 | Surgery Progress Note ---
Date of Service May 13, 2020 Assessment & Plan (1) Cholecystitis: Postoperative day #1 status post laparoscopic cholecystectomy for acute cholecystitis Having abdominal discomfort but no evidence of peritonitis Would keep patient in the hospital for pain control Encouraged ambulation Encourage p.o. intake Admission and Anticipated Discharge Date Admission Date: May 12, 2020 Subjective Postoperative day #1 status post laparoscopic cholecystectomy for acute cholecystitis Having some abdominal discomfort Thinks her belly may be distended Has not passed flatus or had bowel movement Tolerated regular diet however. Physical Exam Gastrointestinal (Abdomen): Inspection/Auscultation: + abdomen distended (Mild) and + hypoactive bowel sounds Percussion/Palpation: + abdomen tender (Mild diffuse throughout) and abdomen soft Results & Data ([facility]) Vital Signs (Past 12 Hours) Vital Signs Temp Pulse Resp BP Pulse Ox 05/13/20 07:05 36.8 C 74 18 108/68 96 05/13/20 04:18 36.7 C 68 20 121/77 93
--- NOTE | 2020-05-13 12:34 | Electrocardiogram Report ---
Test Reason : Blood Pressure : / mmHG Vent. Rate : 075 BPM Atrial Rate : 075 BPM P-R Int : 140 ms QRS Dur : 076 ms QT Int : 404 ms P-R-T Axes : -10 011 043 degrees QTc Int : 451 ms Normal sinus rhythm Normal ECG When compared with ECG of 05-OCT-2012 15:23, No significant change was found Confirmed by Nitesh Ames ([id number]) on 05/13/2020 12:34:03 PM Referred By: REFERRED SELF Confirmed By:Nitesh Ames
[2020-05-13] MEDS: SODIUM CHLORIDE 0.9% 1000ML 1,000 ML IV SCH (19:49)
[2020-05-14] MEDS: oxyCODONE/ACETAMINOPHEN 5mg/325mg TAB PO PRN ×3 (04:05→12:43)
[2020-05-14] MEDS: LEVOTHYROXINE SODIUM 75 MCG TABLET PO SCH (05:55)
[2020-05-14 07:09] LABS: Basophils # (auto) 0.02 K/uL (0-0.2); Basophils % (auto) 0.3 %; Eosinophils # (auto) 0.17 K/uL (0-0.5); Eosinophils % (auto) 2.4 %; Hemoglobin 10.7 g/dL (12.0-16.0); Immature Granulocytes # (auto) 0.01 K/uL (0.00-0.02); Immature Granulocytes % (auto) 0.1 %; Lymphocytes # (auto) 1.87 K/uL (1.2-3.4); Lymphocytes % (auto) 26.3 %; Mean Corpuscular Hemoglobin 28.2 pg (25-34); Mean Corpuscular Hgb Conc 33.4 g/dL (32-36); Mean Corpuscular Volume 84.4 fL (80-100); Mean Platelet Volume 8.7 fL (7.4-10.4); Monocytes # (auto) 0.61 K/uL (0.11-0.59); Monocytes % (auto) 8.6 %; Neutrophils # (auto) 4.44 K/uL (1.4-6.5); Neutrophils % (auto) 62.3 %; Platelet Count 184 K/uL (130-400); RDW Coefficient of Variation 13.9 % (11.5-14.5); RDW Standard Deviation 43.4 fL (36.4-46.3); Red Blood Count 3.79 M/uL (4.2-5.4); White Blood Count 7.12 K/uL (4.8-10.8)
[2020-05-14 07:57] LABS: Albumin Globulin Ratio 0.7 (0.9-2); Albumin Level 2.8 gm/dl (3.4-5.0); BUN Creatinine Ratio 11.9 (10-20); Bilirubin,Total 0.5 mg/dl (0.2-1); Calcium 8.5 mg/dl (8.5-10.1); Creatinine Clr Calc Pharmacy 59.9 ml/min; Est GFR (African American) 91.8; Est GFR (Non-African American) 79.2; Globulin 3.9 gm/dl (2.5-4.0); Total Protein 6.7 gm/dl (6.4-8.2)
[2020-05-14] MEDS: SERTRALINE HCL 100 MG TABLET PO SCH (08:16)
--- NOTE | 2020-05-14 13:32 | Discharge Summary ---
Date of Service May 14, 2020 Admission HPI Per Admitting Provider This 64-year-old female presented to the emergency room with a complaint of pain in the right upper quadrant that has been present now for 5 days. Began as a dull ache about over last evening and today the pain became much more sharp and less bearable. She has not had pain like this before. She did have some nausea. She tried to eat some toast yesterday and vomited. She has not had any hematemesis. There is no history of right upper quadrant pain but she does have a long history of GERD. She has not had any change in her bowel habits. She denies melena hematochezia. She has not had any urinary symptoms. Principal Diagnosis Acute Cholecystitis Discharge Exam Constitutional WD/WN, vitals as above Respiratory normal respiratory effort; no respiratory distress and no labored breathing Gastrointestinal (Abdomen) Inspection/Auscultation: abdomen normal to inspection, normal bowel sounds and + abdominal surgical incision; abdomen not distended Percussion/Palpation: + abdomen tender (at incision sites appropriate postop) and abdomen soft; no guarding and abdomen not rigid Skin no rashes, warm and dry Psychiatric A+Ox3, euthymic affect Discharge Data Allergies Allergy/AdvReac Type Severity Reaction Status Date / Time No Known Allergies Allergy Verified 03 15:43 Consultations 05/12/20 14:56 Consult General Surgery Stat Procedures Performed Operation Date: 05/12/20 17:00 Actual Procedures p Laparoscopic Cholecystectomy(Not Applicable) - Eldon Conklin MD Ordered Studies 03 13:21 CT abd pelvis IV con only Stat Hospital Course (1) Cholecystitis: Patient was taken to operating room for laparoscopic cholecystectomy possible open by Dr. Conklin. Patient tolerated procedure and was transferred to recovery then to medical/surgical floor for postop care. Postoperative day #1, afebrile, vitals stable. Pain was moderate however and was not well controlled. Diet was advanced to regular diet. Patient was kept under observation for better pain management postop. POD # 2 patient was feeling much better and pain better controlled. No n/v. Tolerated regular diet. Urinating without difficulty. Patient was discharged home on POD # 2 in stable condition. Total Time Total Time Spent Total Time Spent (In Minutes): 20 Total Time Includes: Examination of the Patient, Discharge Planning and Medication Reconciliation Discharge Plan Discharge Items Patient Disposition: Home - Self-Care Reason For Visit: CHOLECYSTITIS Discharge Diagnosis: Same Condition on Discharge: Fair Activity: Per Instructions section Non-emergency contact: Surgeon Call non-emergency contact if: your pain is not controlled, your pain is worsening, your pain is concerning for you, you have a fever, your temperature is above 101, your wound has increased redness, your wound has increased drainage and your wound pain has increased Follow-up/Referrals: Kyra Uribe MD [Primary Care Provider] - Diet: Regular Addtl Attending Provider Instructions: Post-Surgical ~Discharge Instructions Activity Recommendations: - lifting limitation: (10 pounds for 2 weeks), - exercise/sex/sports limit: (nonstrenuous for 2 weeks), - driving or machine use limit: (none for 1 week), - Shower/bathe limit: (may shower ) Diet: - Resume previous diet SPECIAL CARE INSTRUCTIONS: - May shower. Let water run over area and pat dry. - No submerging incisions underwater for 2 weeks (no bathing, swimming, hot tubs) - Leave steri strips on for one week and then remove - Call the surgeon's office with any questions or concerns - - (ex. temperature higher than 101 degrees F, excessive bleeding or pain). MEDICATIONS: - Resume previous medications unless instructed otherwise by your surgeon. - You may alternate extra strength Tylenol and Ibuprofen as needed for mild pain - 650 mg Tylenol every 6 hours as needed - Do not exceed 4,000 mg of Tylenol in 24 hour period - Ibuprofen 600 mg every 6 hours as needed take with food - Percocet 1 every 4 hours, as needed for pain. - Percocet has 325 mg of Tylenol per pill FOLLOW UP VISIT: - If not already scheduled, please call the office to schedule a two week follow-up appointment. Office number Pending Studies at Discharge: Yes Stand-Alone Forms: [employer], Smoking Cessation Medications and DC Order Prescriptions: New oxycodone-acetaminophen [Percocet] 5-325 mg tablet 1 tab PO Q4H PRN (Reason: pain) Qty: 10 RF: 0 Continued levothyroxine 75 mcg tablet 75 mcg PO DAILY Qty: 90 RF: 3 sertraline 100 mg tablet 100 mg PO DAILY Qty: 90 RF: 3 cholecalciferol (vitamin D3) 50 mcg (2,000 unit) capsule 50 mcg PO DAILY RF: 0 mecobalamin (vitamin B12) 1,000 mcg tablet,disintegrating 1,000 mcg sublingual DAILY Qty: 30 RF: 0 famotidine [Pepcid] 20 mg Tablet 0 mg PO DAILY PRN (Reason: Abdominal Pain) RF: 0 Discharge Orders: Discharge Order (Routine); Ordered 05/14/20 Ordered By: Zandra Castillo Admission Data Admit Date/Time: 05/12/20 18:26 Attending Provider: Eldon Conklin Admit Provider: Eldon Conklin Primary Care Provider: Kyra Uribe V. Other Providers: Eldon Conklin
== END 2020-05-14 15:05 | disposition home or self-care (01) ==
LOC: 3W 12:58 → ED 12:58 → 3W 16:18

== ENCOUNTER 2022-02-24 06:23 | Observation (INO) ==
--- NOTE | 2022-02-10 12:27 | PAT Medication Instructions ---
Medication Instructions Date of Service February 10, 2022 Home Medications Medication Instructions Recorded cyanocobalamin (vitamin B-12) 1,000 mcg PO DAILY #30 caps 01/02/21 1,000 mcg capsule levothyroxine 75 mcg tablet 75 mcg PO QAM hypothyroid #90 tabs 07/08/21 sertraline 100 mg tablet 150 mg PO QAM #135 tabs 07/08/21 pantoprazole 40 mg tablet,delayed 40 mg PO DAILY #30 tabs 08/06/21 release fluconazole 200 mg tablet 200 mg PO DAILY #21 tabs 08/12/21 (Diflucan) nystatin 100,000 unit/mL oral 10 ml PO QID #400 mL 08/21/21 suspension Wheeled Walker #1 ea 02/10/22 cyanocobalamin (vitamin B-12) 1,000 mcg capsule 1,000 mcg PO DAILY cholecalciferol (vitamin D3) 25 mcg (1,000 unit) capsule (Vitamin D3) 25 mcg PO QAM levothyroxine 75 mcg tablet 75 mcg PO QAM sertraline 100 mg tablet 150 mg PO QAM pantoprazole 40 mg tablet,delayed release 40 mg PO DAILY fluconazole 200 mg tablet (Diflucan) 200 mg PO DAILY nystatin 100,000 unit/mL oral suspension 10 ml PO QID Wheeled Walker Continue as directed fluconazole 200 mg tablet (Diflucan) 200 mg PO DAILY DO NOT take the morning of surgery cyanocobalamin (vitamin B-12) 1,000 mcg capsule 1,000 mcg PO DAILY cholecalciferol (vitamin D3) 25 mcg (1,000 unit) capsule (Vitamin D3) 25 mcg PO QAM nystatin 100,000 unit/mL oral suspension 10 ml PO QID Take morning of surgery With a small sip of water, OTHERWISE NOTHING TO EAT OR DRINK AFTER MIDNIGHT: levothyroxine 75 mcg tablet 75 mcg PO QAM sertraline 100 mg tablet 150 mg PO QAM pantoprazole 40 mg tablet,delayed release 40 mg PO DAILY Take evening before surgery nystatin 100,000 unit/mL oral suspension 10 ml PO QID Other Notes If you have any questions please call us at [phone] or [phone] or [phone] or [phone]
--- NOTE | 2022-02-12 08:26 | Anesthesiology Consultation ---
Date of Service February 12, 2022 Assessment & Plan (1) Encounter for pre-operative examination: - memory concerns with anesthesia, requesting minimal possible anesthesia: She requests the absolute minimum anesthesia option available expressing even if this involves "being awake, having discomfort or increased work for the anesthesia team" due to gradual, persistent memory changes after procedures in recent years. I discussed with her various degrees of anesthesia sedation, gener al anesthesia and neuraxial anesthesia. She expressed appreciation for this clarification. I advised her I will relay this to the anesthesia team and notify her of updates. I did also discuss with her that even with minimal anesthesia, there is potential for further memory changes including overall undergoing strain of surgery. She verbalized understanding and states will take this into consideration regarding planned surgery. Discussed with Dr. Gann who advised he can be assigned to case and DOS he will further discuss details of minimal anesthesia with patient such as avoiding Versed for neuraxial anesthesia, potential consideration for patient being awake if she requests this. OR made aware to assign case to Dr. Gann. - anesthesia record: trigger finger release 05/01/21: minimal sedative, noted for coughing/gastric content requiring suctioning without post-op complication. - Outpatient joint assessment: Patient is currently scheduled for inpatient pathway. If re-evaluated pending system levels during current pandemic/surgeon requests outpatient pathway, patient is acceptable candidate for outpatient joint program from anesthesia standpoint pending surgeon's office assessment of pt motivation/support/completion of same day joint program preop requirements and anesthesia plan. Chart Review Chart Review: Acceptable Risk for Surgery and Patient seen in Pre Admission Testing Teaching & Discussion Pre-Anesthesia Teaching/Discussion Notes: Instructed NPO after midnight before surgery, except medications with 15 cc of water. Medication instructions provided according to the PAT guidelines. History Surgery Operation Date: 02/24/22 07:00 Proposed Procedures p Left Total Knee Arthroplasty with Hardware Removal - Bubba Dumont MD s Left Ring Release Trigger Finger - Bubba Dumont MD Height/Weight Height: 4 ft 11 in Weight: 69.5 kg Allergies Allergy/AdvReac Type Severity Reaction Status Date / Time No Known Drug Allergies Allergy Verified 08/06/21 10:37 Medications Home Medications Medication Instructions Recorded Confirmed Last Taken cholecalciferol (vitamin D3) 25 25 mcg PO QAM 04/22/21 02/10/22 07/30/21 mcg (1,000 unit) capsule (Vitamin D3) Wheeled Walker #1 ea 02/10/22 02/10/22 Unknown levothyroxine 75 mcg tablet 75 mcg PO QAM hypothyroid #90 tabs 02/10/22 Unknown sertraline 100 mg tablet 150 mg PO QAM #135 tabs 02/10/22 Unknown pantoprazole 40 mg tablet,delayed 40 mg PO PRN reflux 02/12/22 Unknown release Past Medical History Medical History (Updated 02/12/22 @ 09:59 by Silvina Ewing PA-C) Anxiety De Quervain's tenosynovitis, left Depression GERD (gastroesophageal reflux disease) controlled, stable per pt Hx of breast cancer dcis right breast no chemo/radiation-no limb restriction Hyperlipidemia no meds Hypothyroidism Left trigger finger Memory changes with each procedure/anesthesia with permanent changes pt has noticed overtime, states has low tolerance for anesthesia medications-requesting minimal amount of anesthesia possible Sensorineural hearing loss (SNHL) of left ear with unrestricted hearing of right ear Sleep apnea no machine Patient denies h/o stroke, seizures, heart attack, heart failure, DM, HTN, blood clots or blood transfusions. Exercise / Class Metabolic Activity II 4-5 Yardwork/Stairs/Walk up hill (denies CP or SOB with 1 FOS) Past Family History Family History Mother Brain cancer Other Allergies Asthma Cancer Heart disease Hypertension No family history of adverse response to anesthesia No family history of bleeding disorder Denies family history of Ovarian cancer Breast cancer Colorectal cancer Past Surgical History Surgical History (Updated 02/12/22 @ 08:44 by Silvina Ewing PA-C) History of cataract surgery bilat History of cholecystectomy 05/12/2021 Grade 3 view, MAC 3, ETT 7.5 History of colonoscopy History of esophagogastroduodenoscopy (EGD) History of hand surgery Hx of arthroscopy right and left knees Hx of carpal tunnel repair right / left Hx of lumpectomy right breast Hx of surgical procedure Right Index, Long and Ring Trigger Fingers Release 05/01/21 MAC. Hx of tooth extraction wisdom teeth Past Anesthesia History Other (see above regarding concerns with memory changes following anesthesia) Unknown anesthesia FHx. History of PONV No Hx of PONV and No Hx of Motion Sickness Social History Smoking Status: Never smoker Do You Dip or Chew Tobacco: No Hx Alcohol Use: Yes Alcohol type: wine alcohol intake frequency: a few times a week Hx Substance Use: No substance use type: does not use Review of Systems Patient denies chest pain, shortness of breath, dyspnea on exertion, fever, chills, cough, wheezing, or palpitations. Physical Exam Vital Signs Vitals BP 132/80 P 68 TEMP 98.4 SP02 97% on RA RESP 18 Physical Full cervical extension range of motion without pain TMD 3.5 finger breadths Mallampati Score 2 Dentition: intact, several caps/crowns; denies chipped or loose teeth, implants or bridges Lungs: normal respiratory effort. Clear throughout to auscultation, no adventitious breath sounds Cardiac: regular rate and rhythm, no murmurs noted Carotid arteries: negative bruit bilat Lab Results Anesthesia Preop Results Results Anesthesia Widget: WBC 6.23 K/ul (4.8-10.8) 02/12/22 Hgb 12.5 g/dl (12.0-16.0) 02/12/22 Hct 37.4 % (34.1-44.9) 02/12/22 Plt 186 K/uL (130-400) 02/12/22 Na 138 mmol/L (136-145) 02/12/22 K 4.2 mmol/L (3.5-5.1) 02/12/22 Cl 102 mmol/L (98-107) 02/12/22 CO2 30 mmol/L (21-32) 02/12/22 BUN 18 mg/dl (6-23) 02/12/22 Creat 0.78 mg/dl (0.6-1.2) 02/12/22 Glucose Level 91 mg/dl (70-99(Fasting)) 02/12/22 PT 10.8 Seconds (9.0-12.0) 02/12/22 PTT 24.2 Seconds (21.0-31.0) 02/12/22 INR 1.0 (0.9-1.1) 02/12/22 Blood Type A Positive 02/12/22 Antibody Screen NEGATIVE 02/12/22 Testing Electrocardiogram Date: 02/12/22 NSR, rate 65 bpm Chest X-Ray Date: 02/12/22 Lung volumes are normal. Lungs are clear. There is no pneumothorax or pleural effusion. Cardiac size is normal. A small hiatal hernia is unchanged. Cholecystectomy clips are present. There is no evidence for pulmonary edema. IMPRESSION: No acute cardiopulmonary findings. COVID-19 Risk Screen Screening Information COVID-19 Screen Date: 02/12/22 Exposure 21 Days Family/Household +COVID Last 21 Days: No Exposure 10 Days Any COVID Exposure Last 10 Days: No Symptoms Last 10 Days Experienced COVID Sx Last 10 Days: No + COVID 0-90 Days COVID + in Last 0-90 Days: No
[~2022-02-24 06:23] MED LIST: ACETAMINOPHEN 500 MG TAB PO SCH; BUPIVACAINE LIPOSOME/PF 266 MG, BUPIVACAINE/EPINEPHRINE 50 ML, SODIUM CHLORIDE 0.9% 30 ... INFIL SCH; CeleBREX 200 MG CAP PO SCH; FAMOTIDINE 20 MG TAB PO SCH; LR 500ML BOLUS, THEN 15ML/HR IV SCH; LR 60ML/HR IV SCH; METOCLOPRAMIDE HCL 10 MG TABLET PO SCH; Scopolamine 1 MG TDSY TD SCH; TRANEXAMIC ACID 1,000 MG **IV Intra-op IV SCH; ceFAZolin 2000MG 2,000 MG/15 ML SYR IV SCH
[2022-02-24] MEDS ORDERED: BUPIVACAINE 0.5 % 5 MG/1 ML PF 10ML VIAL ONE (06:30)
[2022-02-24] MEDS ORDERED: BUPIVACAINE 0.25% 30 ML VIAL ONE (06:30)
--- NOTE | 2022-02-24 06:55 | History & Physical Bridge Note ---
Date of Service February 24, 2022 History & Physical Bridge Note I have examined the patient, reviewed the History & Physical and in the interval since the performance of the History & Physical I have noted the following changes of clinical significance: no changes noted
[2022-02-24] MEDS ORDERED: ONDANSETRON INJ 2 MG/ML 2 ML VIAL IV PRN ×2 (07:42→14:38)
[2022-02-24] MEDS ORDERED: MIDAZOLAM HCL 1 MG/ML 2ML VIAL ONE (07:42)
[2022-02-24] MEDS ORDERED: ePHEDrine sulfate 50 MG/ML AMP IV PRN (07:42)
[2022-02-24] MEDS ORDERED: ATROPINE SULFATE 0.1 MG/ML 10ML SYR IV PRN (07:42)
[2022-02-24] MEDS ORDERED: fentaNYL citrate 100 MCG/2 ML VIAL ONE (07:43)
[2022-02-24] MEDS ORDERED: PROPOFOL IV EMULSION 10 MG/ML 20 ML VIAL IV ONE (07:44)
[2022-02-24] MEDS ORDERED: ONDANSETRON INJ 2 MG/ML 2 ML VIAL ONE (07:49)
[2022-02-24] MEDS ORDERED: BUPIVACAINE 0.5 % 5 MG/1 ML MPF 30ML VIAL ONE (09:01)
[2022-02-24] MEDS ORDERED: VANCOMYCIN HCL 1000MG/20ML VIAL ONE (09:01)
[2022-02-24] MEDS ORDERED: LIDOCAINE 2% LOCAL 50 ML VIAL ONE (09:01)
[2022-02-24] MEDS ORDERED: BUPIVACAINE/EPINEPHRINE 0.25% 1:200,000 30 ML VIAL ONE (09:01)
[2022-02-24] MEDS ORDERED: BUPIVACAINE LIPOSOME 1.3% 266 MG/20 ML VIAL ONE (09:02)
[2022-02-24] MEDS ORDERED: SODIUM CHLORIDE 0.9% PF 50 ML VIAL ONE (09:02)
[2022-02-24] MEDS ORDERED: ePHEDrine sulfate 50 MG/ML AMP ONE (10:46)
[2022-02-24] MEDS ORDERED: LIDOCAINE 2% MPF LOCAL 5 ML VIAL INFIL ONE (11:30)
--- NOTE | 2022-02-24 12:01 | Operative Report ---
PG Post Operative Report Pre & Post Diagnosis Operation Date: 02/24/22 08:50 Pre-Op Diagnosis: Left Knee Osteoarthritis, Left Ring Trigger Finger Post-Op Diagnosis: Left Knee Osteoarthritis, Left Ring Trigger Finger I identified the patient and participated in the time-out.: Yes Procedure Operation Date: 02/24/22 08:50 Actual Procedures p Left Total Knee Arthroplasty with Hardware Removal(Left) - Bubba Dumont MD s Left Ring Release Trigger Finger(Left) - Bubba Dumont MD Surgeon Bubba Dumont MD Nursing Unit Clerk Ronal Greenberg PA-C Estimated Blood Loss 200 Findings Consistent with Post-Op Diagnosis Operative findings were advanced left knee DJD. She had grade 4 [id number] disease in all 3 compartments. Moderate-sized joint effusion. She had patella Baha with scarring of the patella tendon. Moderate osteopenia. Moderate-sized joint effusion. The left ring finger show the classic signs of a trigger finger. Specimens Left knee sent for pathology Anesthesia Type Spinal MAC Complications none Disposition Accompanied Patient To Recovery: No Indications Patient is a 66-year-old female has had a history of multiple left knee surgeries. She had ACL reconstruction with allograft tendon done and then the subsequent HTO and then hardware removal. Over the years she has developed increased pain discomfort in her knee. Is been unresponsive conservative treatment. She elected to a total knee replacement. Patient is also had a several month history of left ring catching and locking. Does have a history of trigger fingers on the other digits so requiring surgical release. She did not respond to steroid shots in the past and elected proceed with trigger finger release of the left long finger. Description of Procedure Operative implants consist of: 1 Biomet Vanguard size 62.5 left posterior stabilized femoral component. 2. Biomet size 67 tibial tray. 3. 10 mm posterior stabilized polyethylene insert. 4. 25 x 8 all Paller patella. The patient was taken to the operating, identified, placed on the operating table supine position protectors were properly padded. IV antibiotics arrived by anesthesia team. Spinal anesthetic and abductor canal block had provided holding area. Escalera catheter was placed in sterile fashion. A left thigh tent was then placed. The left lower extremities then prepped and draped in usual sterile fashion. The left leg was elevated exsanguinated with use of an Esmarch. However, the tourniquet did not work and had a leak therefore we did this procedure without the tourniquet. An anterior approach left knee was then performed using the previous distal incision extending approximately and then curving it over towards the mid aspect of the quad. Sharp dissection Through subcutaneous tissue down the extensor mechanism. A medial parapatellar arthrotomy incision was made. Some subperiosteal dissection was carried out medially. The reining fat pad which was scarred to the patella tendon was [facility]. Patella tendon was fairly short and scarred down. The patella was subluxated laterally. The knee was flexed. The osteophytes taken off distal femur. The ACL was absent. The remnant of the PCL was released and the tibia subluxated anteriorly. External tibial alignment jig was then placed in the interface the tibia and adjusted 14 mm medially. Proximal tibial cut was made. Some osteophytes taken off medially. The tibia was sized to a size 67. Attention drawn the femur. The distal femur stem with a sharp drop with intramedullary canal was suction. A left 5 degree valgus cutting guide was placed. Distal femoral cutting block was pinned in place but distal femoral cut was made to take an additional 3 mm bone off distal femur. The femur was then sized to a size 62.5. The AP cutting block was pinned parallel to the epicondylar axis which was 5 degrees of external rotation. Anterior cut, anterior chamfer, posterior cut, posterior chamfer cuts were made. The box cutting guide was placed in the just slight laterally. Upon making the box guide cut we did run into this as interference screw. We removed the box of bone. I then remove the inner screw at Berkley screw without difficulty and then recut the box. The knee was then flexed. The remnants of the medial lateral menisci were excised. The osteophytes were taken off the posterior aspect the femur. A trial femoral component was placed. Tibial tray was pinned in maximum external rotation and the drill and stem punch used to create defect in proximal tibia for the tibial tray. The knee was then trialed a 10 mm insert fit most appropriately. Attention drawn the patella. The patella was quite thinned and scarred down. The patella was cleaned of all soft tissues. Patella thickness measured 20 mm in thickness was cut down to 12. Was sized a size 25 patella. The lug holes were drilled for the 25 patella. Lateral osteophytes removed. Patella button was placed. Knee was taken through range of motion patella tracked nicely with no thumbs test. Attention drawn to placing permanent components. Marcella all trial components were removed. Bone plug was placed and this femur limit blood loss. Double batch Palacos G cement was mixed with additional gram of vancomycin due to the multiple surgeries on this knee. A Biomet Vanguard size 62.5 left posterior stabilized femoral component, size 67 tibial tray, 10 mm posterior stabilized polyethylene insert, and a 25 x 8 all Paller patella then cemented in place. The knee was brought out into full extension until cement hardened. Final cement check was then performed. Pericapsular tissues were injected with total 100 cc of combination of 20 cc of Exparel, 30 cc normal saline, 50 cc of quarter percent Marcaine with epinephrine. Patient did receive 1 g tranexamic acid. We did this procedure without the tourniquet. The wound was then irrigated extensively. The extensor mechanism closed with combination 1 PDS suture #1 Vicryl suture in [id number] fashion. Extensor mechanism checked found to be intact the subcutaneous tissue then closed with 2 Dexon suture in a buried interrupted fashion skin was closed skin hugh. Leg was then cleaned and dried a sterile dressing was Xeroform, 4 fours, sterile cast padding, Krish bandage were applied. Attention then drawn to the trigger finger. All drapes were removed. The left forearm tourniquet was placed. The left hand was cleaned with alcohol. 10 cc of a 50-50 combination of half percent Marcaine and 2% plain lidocaine were then injected in and around the proposed incision site at the base of the ring finger. The left hand was then prepped and draped in usual sterile fashion. Marcella left hand was elevated exsanguinated with use of an Esmarch interspaced at 250 mmHg. A transverse incision was made at the base of the ring finger in the distal palmar crease. Of note she did have some mild contractures consistent with Dupuytren's disease in this area. Blunt dissection was carried through subcutaneous tissues releasing some of the thickened pretendinous cords. The A1 angel was identified and transected use of scissors. Was bluntly spread. The finger was taken through an active and active assisted range of motion there is no further catching or locking. The tourniquet was let down for final turn time 4 minutes. Hemostasis reduced electrocautery. The skin was then closed with 4-0 nylon suture in a horizontal mattress fashion. He was then cleaned and dried a sterile dressing was Xeroform, 4 x 4's, sterile cast padding, Krish bandage were applied. Patient then transferred to the recovery room in stable condition. Patient tolerated procedure well and there were no complications. Ronal Greenberg, my physician assistant professor of spanish, was present for the entire procedure. His assistance was required for proper patient positioning, prepping and draping, surgical exposure, retraction, placement of the implants, closure of the wounds, placement of sterile bandages. I attest to the content of the Intraoperative Record and any orders documented therein. Any exceptions are noted below.
[2022-02-24] MEDS: fentaNYL citrate 100 MCG/2 ML VIAL IV PRN ×4 (12:20→12:40)
--- NOTE | 2022-02-24 12:36 | XRay Report ---
XR knee LT 1 or 2V routine HISTORY: 66 years-old Female Surgical Post Op [knee total joint arthroplasty COMPARISON: Knee radiographs 02/10/2022 TECHNIQUE: 2 views of the left knee FINDINGS: Total joint arthroplasty with patellar resurfacing. Anterior midline skin hugh are noted along wit h expected postoperative soft tissue swelling with deep tissue air. No acute fracture or an expected opaque foreign body. IMPRESSION: Total joint arthroplasty with expected postoperative changes. ACT 112: Negative or not required by law. The above report was generated using voice recognition software. It may contain grammatical, syntax o r spelling errors. Electronically signed by: Sai Chaudhary M.D. 02/24/2022 12:34 PM
[2022-02-24] MEDS ORDERED: HYDROmorphone INJ 0.5 MG/0.5 ML SYR IV PRN ×2 (12:49→14:38)
[2022-02-24] MEDS ORDERED: HYDROmorphone INJ 1 MG/ML SYRINGE ONE ×2 (12:49→13:22)
--- NOTE | 2022-02-24 14:30 | Anesthesiology Progress Note ---
Date of Service February 24, 2022 Anesthesia Post Procedure Vital Signs Vital Signs: Temp Pulse Resp BP Pulse Ox O2 Del Method O2 Flow Rate 02/24/22 13:35 77 21 135/71 95 Room Air 02/24/22 13:25 71 20 140/85 99 Room Air 02/24/22 13:15 70 22 134/81 99 Room Air 02/24/22 13:05 67 18 129/69 98 Room Air 02/24/22 12:55 71 19 111/60 99 Room Air 02/24/22 12:45 70 16 118/68 99 Room Air 02/24/22 12:05 64 17 100/77 100 Oxymask 4 02/24/22 12:35 68 14 126/64 98 Room Air 02/24/22 12:25 37 C 65 14 122/65 97 Room Air 02/24/22 12:15 65 24 127/70 100 Oxymask 2 02/24/22 11:55 36.1 C L 63 17 123/71 96 Oxymask 6 02/24/22 06:58 37.0 C 66 20 135/75 97 Room Air Pain Intensity Left Hand: Pain Intensity: 6 Left Knee: Pain Intensity: 4 Transfer of Care Handoff Completed per policy Notes Mental Status: alert / awake / arousable and participated in evaluation Patient Amnestic to Procedure: Yes Nausea / Vomiting: adequately controlled Pain: adequately controlled Airway Patency, RR, SpO2: stable & adequate BP & HR: stable & adequate Hydration State: stable & adequate Neuraxial Anesthesia: was administered and sensory block is resolving Anesthetic Complications: no major complications apparent and Pt Satisfied with anesthetic care
[2022-02-24] MEDS ORDERED: bisacodyL 10 MG SUPP PR PRN (14:38)
[2022-02-24] MEDS ORDERED: ALUMINUM/MAGNESIUM SUSP 30 ML UDC PO PRN (14:38)
[2022-02-24] MEDS ORDERED: NALOXONE HCL 0.4 MG/1 ML VIAL/CARP IV PRN (14:38)
[2022-02-24] MEDS ORDERED: METOCLOPRAMIDE HCL INJ 5 MG/ML 2 ML VIAL IV PRN (14:38)
[2022-02-24] MEDS ORDERED: MAGNESIUM HYDROXIDE SUSP 30 ML UDC PO PRN (14:38)
[2022-02-24] MEDS: Scopolamine CHECK PATCH PLACEMENT SCH ×2 (14:53→23:45)
[2022-02-24] MEDS: KETOROLAC TROMETHAMINE 15 MG/ML VIAL IV SCH ×2 (15:18→21:26)
[2022-02-24] MEDS: ACETAMINOPHEN 500 MG TAB PO SCH ×2 (15:18→23:41)
[2022-02-24] MEDS: SODIUM CHLORIDE 0.9% 1000ML 1,000 ML IV SCH (15:21)
[2022-02-24] MEDS: ASCORBIC ACID 500 MG TAB PO SCH (17:59)
[2022-02-24] MEDS ORDERED: TRANEXAMIC ACID / 0.7% NACL 1,000 MG/100 ML BAG IV SCH (18:00)
[2022-02-24] MEDS: ceFAZolin 1000MG 1,000 MG/7.5 ML SYR IV SCH (18:00)
[2022-02-24] MEDS: SENNA 8.6 MG TAB PO SCH (20:11)
[2022-02-24] MEDS: ASPIRIN 81 MG ECTAB PO SCH (20:11)
[2022-02-24] MEDS: DOCUSATE SODIUM 100 MG CAP PO SCH (20:11)
[2022-02-24] MEDS: oxyCODONE HCL IR 5 MG TAB (IMMEDIATE RELEASE) PO PRN (23:06)
[2022-02-25] MEDS: SODIUM CHLORIDE 0.9% 1000ML 1,000 ML IV SCH (01:21)
[2022-02-25] MEDS: ceFAZolin 1000MG 1,000 MG/7.5 ML SYR IV SCH (02:30)
[2022-02-25] MEDS: KETOROLAC TROMETHAMINE 15 MG/ML VIAL IV SCH ×4 (02:30→21:59)
[2022-02-25] MEDS ORDERED: diphenhydrAMINE 50 MG/ML VIAL IV STA (06:09)
[2022-02-25] MEDS: oxyCODONE HCL IR 5 MG TAB (IMMEDIATE RELEASE) PO PRN ×3 (06:22→16:12)
[2022-02-25 06:57] LABS: Hematocrit (blood only) 26.7 % (34.1-44.9); Hemoglobin 9.1 g/dl (12.0-16.0); Mean Corpuscular Hgb Conc 34.1 g/dL (32.0-36.0); Mean Platelet Volume 9.2 fL (9.4-12.3); Platelet Count 115 K/uL (130-400); RDW Coefficient of Variation 13.8 % (11.5-14.5); RDW Standard Deviation 42.9 fL (36.4-46.3); Red Blood Count 3.14 M/uL (3.93-5.22); White Blood Count 5.54 K/ul (4.8-10.8)
[2022-02-25 07:17] LABS: Calcium 7.9 mg/dl (8.5-10.1); Creatinine Clr Calc Pharmacy 56.1 ml/min; Est GFR (African American) 85.2 ml/min; Est GFR (Non-African American) 73.5 ml/min; Potassium 3.5 mmol/L (3.5-5.1)
[2022-02-25] MEDS: ACETAMINOPHEN 500 MG TAB PO SCH ×3 (07:34→21:59)
[2022-02-25] MEDS ORDERED: dexAMETHasone 10 MG in SYRINGE 0 ML IV SCH (08:00)
[2022-02-25] MEDS: DOCUSATE SODIUM/SENNA 50/8.6MG TAB PO SCH (08:24)
[2022-02-25] MEDS: ASCORBIC ACID 500 MG TAB PO SCH ×2 (08:25→16:13)
[2022-02-25] MEDS: MULTIVITAMIN TAB PO SCH (08:25)
[2022-02-25] MEDS: SERTRALINE HCL 50 MG TABLET PO SCH (08:25)
[2022-02-25] MEDS: CHOLECALCIFEROL 1,000 UNITS 25 MCG TAB PO SCH (08:25)
[2022-02-25] MEDS: ASPIRIN 81 MG ECTAB PO SCH ×2 (08:25→20:38)
[2022-02-25] MEDS: DOCUSATE SODIUM 100 MG CAP PO SCH ×2 (08:25→20:37)
[2022-02-25] MEDS: Scopolamine CHECK PATCH PLACEMENT SCH ×2 (08:26→16:04)
--- NOTE | 2022-02-25 14:07 | Progress Notes ---
DATE OF SERVICE: 02/25/2022. SUBJECTIVE: A 66-year-old white female postoperative day 1 from a left knee replacement and a left t construction rigger finger release. She is doing pretty well. Some moderate amount of pain, but went through the rapy well. A little bit agitated with the therapist. Denies any chest pain or shortness of breath. Not feeling dizzy or lightheaded. OBJECTIVE: VITAL SIGNS: Temperature is 37.3. Vital signs are stable. GENERAL: Shows a pleasant middle-aged female. She is sitting up in bed and looks comfortable. LUNGS: Clear to auscultation. HEART: Regular rate and rhythm. ABDOMEN: Soft, nontender, nondistended. EXTREMITIES: Grossly neurovascularly intact except as follows. Examination of the left leg reveals the dressing to be clean, dry and intact. She can do a good stra ight leg raise. She can dorsiflex and plantarflex her foot appropriately. Examination of the left hand reveals the dressing to be pretty disheveled. She can flex and extend h er fingers fairly normal. Minimal pain. LABORATORY DATA: Hemoglobin 9.1. Hematocrit 26.7. Electrolytes are stable. ASSESSMENT: A 66-year-old white female postoperative day 1 from a left knee replacement and trigger finger release. She is doing pretty well. Pain is reasonably well controlled. Neurologically intac t. PLAN: 1. DVT prophylaxis includes thigh-high TEDs, SCDs, and aspirin twice a day. 2. OT, weightbear as tolerated. Left total knee protocol. 3. Pain control, doing okay with current pain regimen. 4. Wound care. We will change her bandage on her leg tomorrow and I will change her bandage on her hand today as it has gotten quite disheveled. She is probably planning to be discharged with home he alth. Job ID: [id number]
[2022-02-25] MEDS: SENNA 8.6 MG TAB PO SCH (20:36)
[2022-02-26] MEDS: Scopolamine CHECK PATCH PLACEMENT SCH ×2 (00:25→08:31)
[2022-02-26] MEDS: KETOROLAC TROMETHAMINE 15 MG/ML VIAL IV SCH ×2 (02:42→08:44)
[2022-02-26] MEDS: ACETAMINOPHEN 500 MG TAB PO SCH (06:13)
[2022-02-26 08:11] LABS: Basophils # (auto) 0.01 K/uL (0-0.2); Basophils % (auto) 0.1 %; Eosinophils # (auto) 0.26 K/uL (0-0.50); Eosinophils % (auto) 3.7 %; Hematocrit (blood only) 25.9 % (34.1-44.9); Hemoglobin 8.6 g/dl (12.0-16.0); Immature Granulocytes # (auto) 0.03 K/uL (0.00-0.02); Immature Granulocytes % (auto) 0.4 %; Lymphocytes # (auto) 1.68 K/uL (1.2-3.4); Mean Corpuscular Hemoglobin 28.4 pg (25.0-34.0); Mean Corpuscular Hgb Conc 33.2 g/dL (32.0-36.0); Mean Corpuscular Volume 85.5 fL (80.0-100.0); Mean Platelet Volume 9.8 fL (9.4-12.3); Monocytes % (auto) 7.2 %; Neutrophils # (auto) 4.51 K/uL (1.4-6.5); Neutrophils % (auto) 64.6 %; Platelet Count 156 K/uL (130-400); RDW Coefficient of Variation 13.6 % (11.5-14.5); RDW Standard Deviation 42.2 fL (36.4-46.3); Red Blood Count 3.03 M/uL (3.93-5.22); White Blood Count 6.99 K/ul (4.8-10.8)
[2022-02-26] MEDS: DOCUSATE SODIUM 100 MG CAP PO SCH (08:30)
[2022-02-26] MEDS: ASPIRIN 81 MG ECTAB PO SCH (08:30)
[2022-02-26] MEDS: SERTRALINE HCL 50 MG TABLET PO SCH (08:30)
[2022-02-26] MEDS: ASCORBIC ACID 500 MG TAB PO SCH ×2 (08:31→08:43)
[2022-02-26] MEDS: DOCUSATE SODIUM/SENNA 50/8.6MG TAB PO SCH (08:31)
[2022-02-26] MEDS: CHOLECALCIFEROL 1,000 UNITS 25 MCG TAB PO SCH ×2 (08:31→08:43)
[2022-02-26] MEDS: MULTIVITAMIN TAB PO SCH ×2 (08:31→08:43)
[2022-02-26] MEDS ORDERED: PANTOprazole 40 MG TAB PO SCH (09:30)
[2022-02-26] MEDS: oxyCODONE HCL IR 5 MG TAB (IMMEDIATE RELEASE) PO PRN (10:48)
--- NOTE | 2022-02-26 11:23 | Progress Notes ---
DATE OF SERVICE: 02/26/2022. SUBJECTIVE: A 66-year-old white female postoperative day 2 from a left knee replacement and left rin g trigger finger release. She is doing pretty well. Pain sciatica reasonably controlled. No chest pain or shortness of breath. Not feeling dizzy or lightheaded. OBJECTIVE: VITAL SIGNS: Temperature 36.9. Vital signs are stable. GENERAL: Shows a pleasant middle-aged female. She is moving around her room quite well independentl y. EXTREMITIES: Examination of the left knee reveals the dressing to be clean, dry and intact. She can do a good straight leg raise. She bends from 0-90 degrees without much difficulty. Examination of the left hand reveals the dressing to be in place. She can flex and extend her finger s appropriately. She is neurologically intact. ASSESSMENT: A 66-year-old white female postoperative day 2 from a left knee replacement, doing prett y well. Pain is controlled. She is neurologically intact. She apparently missed some medicines thi s morning that we will have to check up on. PLAN: 1. DVT prophylaxis includes thigh-high TEDs, SCDs, and aspirin twice a day. 2. PT, OT, weightbear as tolerated. Left total knee protocol. 3. Pain control, doing okay with current pain regimen. 4. Disposition: Plan to discharge to home with some home health after therapy today. Job ID: [id number]
--- NOTE | 2022-03-02 07:28 | Discharge Summary ---
Date of Service March 02, 2022 Discharge Data Procedures Performed Operation Date: 02/24/22 08:50 Actual Procedures p Left Total Knee Arthroplasty with Hardware Removal(Left) - Bubba Dumont MD s Left Ring Release Trigger Finger(Left) - Bubba Dumont MD Hospital Course (1) Status post total left knee replacement: This is a 66 year old patient admitted on 02/24/22 and underwent total knee arthroplasty and left ring trigger finger release. She tolerated the procedure well and there were no complications. Transferred to the PACU post op and later to the orthopedic floor for further care. She was given ancef for antibiotic prophylaxis. She was also given GLENROY stockings, SCDs, and aspirin for DVT prophylaxis. Hemoglobin, hematocrit, and vital signs were monitored during her hospital stay and remained stable. Did not require any blood transfusions. There were no complications during her hospital stay. By post op day #2 the patient was tolerating a regular diet, pain was reasonably controlled with oral pain medicine, and she was participating in physical therapy. On post op day #2 the patient was discharged home and set up with home health care. She was given printed discharge instructions including prescriptions for extra strength tylenol, aspirin, cefadroxil, ketorolac, zofran, senokot, and oxycodone. Continue physical therapy, weight bearing as tolerated. Continue GLENROY stockings. Follow up approximately 2 weeks post op or sooner if there are problems or concerns. Coding Level of Care Code None Diagnoses Status post total left knee replacement Z96.652
[2022-03-04 14:41] LABS: Desmethylsertraline 160 ng/mL; Sertraline(Zoloft) 96 ng/mL
== END 2022-02-26 12:19 | disposition home health service (06) ==
LOC: ASU 06:23 → 3E 06:23

== ENCOUNTER 2024-09-13 10:48 | Observation (INO) ==
--- NOTE | 2024-08-16 09:58 | PAT Medication Instructions ---
Medication Instructions Date of Service August 16, 2024 Home Medications Medication Instructions Recorded levothyroxine 75 mcg tablet 75 mcg PO QAM hypothyroid #90 tabs 02/16/24 sertraline 100 mg tablet 150 mg (1.5 x 100 mg) PO QAM #135 05/24/24 tabs rabeprazole 20 mg tablet,delayed release 20 mg PO QAM levothyroxine 75 mcg tablet 75 mcg PO QAM hypothyroid sertraline 100 mg tablet 150 mg (1.5 x 100 mg) PO QAM cholecalciferol (vitamin D3) 125 mcg (5,000 unit) tablet (Vitamin D3) 125 mcg PO UD mecobalamin (vitamin B12) 1,000 mcg chewable tablet 1,000 mcg PO UD DO NOT take the morning of surgery cholecalciferol (vitamin D3) 125 mcg (5,000 unit) tablet (Vitamin D3) 125 mcg PO UD mecobalamin (vitamin B12) 1,000 mcg chewable tablet 1,000 mcg PO UD Take morning of surgery With a small sip of water, OTHERWISE NOTHING TO EAT OR DRINK AFTER MIDNIGHT: rabeprazole 20 mg tablet,delayed release 20 mg PO QAM levothyroxine 75 mcg tablet 75 mcg PO QAM hypothyroid sertraline 100 mg tablet 150 mg (1.5 x 100 mg) PO QAM Other Notes If you have any questions please call us at [phone] or [phone] or [phone] or [phone]
--- NOTE | 2024-08-22 08:22 | Anesthesiology Consultation ---
Date of Service August 22, 2024 Assessment & Plan (1) Encounter for pre-operative examination: - anesthesia concern/patient request: pt reports each time she undergoes anesthesia, she has memory issues, states she tries to get "as little anesthesia as possible" - cardiology office visit 09/02/23 [place]: "...Palpitations: Although her palpitations are quite intermittent I would like to get a Holter monitor to get a sense for her background ectopy. We can put that on today. If she has symptoms we can see what they are, if not and we are still concerned about these intermittent symptoms we can consider longer-term monitoring. Chest discomfort: Her chest discomfort is quite atypical for coronary artery disease however she does have a carotid plaque, she does have a somewhat abnormal cholesterol profile and she is in an age group where she certainly could have coronary artery disease. I hesitate to do a catheterization, a CT calcium score might be helpful. If it shows a lot of calcification we may need to proceed to catheterization, if not it might be helpful for prognosis. We can reevaluate things once we have these studies..." - Outpatient joint pathway: Per surgeon and patient, plan for outpatient joint program. Upon review of chart- patient is/is not an acceptable candidate for [facility] Program from anesthesia perspective pending perioperative course. Pending patient is motivated, has good support and surgeon's office completes [facility] preop requirements- patient may proceed with outpatient . Chart Review Chart Review: Patient seen in Pre Admission Testing Teaching & Discussion Pre-Anesthesia Teaching/Discussion Notes: Instructed NPO after midnight before surgery, except medications with 15 cc of water. Medication instructions provided according to the PAT guidelines. History Surgery Operation Date: 09/13/24 08:50 Proposed Procedures p Right Total Knee Arthroplasty and Hardware Removal - Bubba Dumont MD s Removal Hardware Knee Right - Bubba Dumont MD Height/Weight Height: 4 ft 10.5 in Weight: 65.771 kg Allergies Allergy/AdvReac Type Severity Reaction Status Date / Time No Known Drug Allergies Allergy Verified 08/16/24 08:22 Medications Home Medications Medication Instructions Recorded Confirmed Last Taken rabeprazole 20 mg tablet,delayed 20 mg PO QAM 08/10/23 08/16/24 08/19/23 05:50 release levothyroxine 75 mcg tablet 75 mcg PO QAM hypothyroid #90 tabs 02/16/24 08/16/24 Unknown sertraline 100 mg tablet 150 mg (1.5 x 100 mg) PO QAM #135 05/24/24 08/16/24 Unknown tabs cholecalciferol (vitamin D3) 125 125 mcg PO UD 08/16/24 08/16/24 Unknown mcg (5,000 unit) tablet (Vitamin D3) mecobalamin (vitamin B12) 1,000 1,000 mcg PO UD 08/16/24 08/16/24 Unknown mcg chewable tablet Past Medical History Medical History (Updated 08/22/24 @ 08:08 by Silvina Ewing PA-C) Aching leg syndrome of right lower extremity Anemia Anxiety and depression Carotid artery plaque states no current issues, monitored by pcp Decreased hearing Degenerative arthritis of knee, bilateral Degenerative joint disease, right, foot Dyslipidemia Dysphagia GERD (gastroesophageal reflux disease) History of anesthesia reaction pt reports each time she undergos anesthesia, she has memory issues, states she tries to get "as little anesthesia as possible" History of GI bleed (~2022) Hx of breast cancer dcis right breast no chemo/radiation-no limb restriction Hx of sleep apnea used a cpap in past- told no longer needed to use- >15 years ago Hyperglycemia Hypothyroidism IT band syndrome Memory changes Patient states worsening of memory impairment with anesthesia in the past, requests minimal amount of anesthesia when possible- would also like to speak with anethesia prior to having surgery (for PAT 08/22) Obesity, Class I, BMI 30-34.9 Postmenopausal atrophic vaginitis Patient denies h/o stroke, seizures, heart attack, heart failure, DM, HTN, blood clots/DVTs or blood transfusions. Past Family History Family History Mother Brain cancer Other Allergies Asthma Cancer Heart disease Hypertension No family history of adverse response to anesthesia No family history of bleeding disorder Denies family history of Ovarian cancer Prostate cancer Myocardial infarction Breast cancer Colorectal cancer Past Surgical History Surgical History History of cataract surgery bilat History of cholecystectomy (2020) 05/12/2021 Grade 3 view, MAC 3, ETT 7.5 History of colonoscopy History of esophagogastroduodenoscopy (EGD) having repeat at [facility] on 08/26/24 Hx of arthroscopy right and left knees - repair of acl and torn meniscus Hx of carpal tunnel repair right / left Hx of lumpectomy right breast- no limb restrictions Hx of tooth extraction wisdom teeth S/P trigger finger release 02/24/22 left done at same time as LTKA trigger finger surgery on both right and left hands x 6 Status post total left knee replacement (02/24/22) 02/24/2022- also had surgery on left knee with dr. pnea approx 15-20 years ago- "high tibial osteotomy" Social History Smoking Status: Never smoker Do You Dip or Chew Tobacco: No Hx Alcohol Use: Yes Alcohol type: wine alcohol intake frequency: a few times a week Hx Substance Use: No substance use type: does not use Review of Systems Patient denies chest pain, shortness of breath, dyspnea on exertion, fever, chills, cough, wheezing, or palpitations. Physical Exam Vital Signs Vitals BP P TEMP SP02 % on RA RESP Physical Patient resting comfortably in chair in no acute distress, alert and oriented, responding appropriately throughout visit Full cervical extension range of motion without pain TMD __ finger breadths Mallampati Score ___ Dentition: intact, denies chipped or loose teeth, caps/crowns, implants or bridges Lungs: normal respiratory effort. Good air movement, clear throughout to auscultation, no adventitious breath sounds Cardiac: regular rate and rhythm, no murmurs noted Carotid arteries: negative bruit bilat Testing Echocardiogram Date: 08/28/23 EF 60-65% No regional wall motion abnormalities No LVH Mild mitral regurgitation Mildly dilated ascending aorta 4.2 cm Grade I diastolic dysfunction Other Testing CT calcium score 02/18/24 Agaston calcium score of 20, corresponding to the 50th percentiles for age, gender and ethnicity, implying that 50% of the females at the ages from 66-70 will have a higher calcium score...at least mild atherosclerotic plaque is present. Mild or minimal coronary narrowings are likely. Coronary artery calcium is present in LAD Ectasia of the ascending thoracic aorta Moderate hiatal hernia Cardiac event monitor 09/10/23 Sinus rhythm (min HR 47, average 71 and max 153 bpm) Blunted diurnal heart rate variation 8 isolated premature ventricular beats with no couplets or runs 394 isolated premature supraventricular beats with 11 couplets and 17 runs, the longest was 19 beats at 4:41 am Fastest was 153 bpm at 5 am. Most, but not all, of the supraventricular runs occurred between midnight and noon No pauses in excess of 2 seconds
--- NOTE | 2024-08-22 09:36 | Anesthesiology Consultation ---
Date of Service August 22, 2024 Assessment & Plan (1) Encounter for pre-operative examination: Plan - Case discussed in detail with Dr. Marie who advised nothing further needed from anesthesia standpoint. - anesthesia request/concern: memory concerns with anesthesia, requesting minimal possible anesthesia. Case was discussed again in detail with Dr. Shannon by myself this morning prior to visit today and he advised could minimize or avoid sedation with neuraxial anesthesia and then ultimate determination further to assigned anesthesiologist am DOS regarding if patient wants to also receive propofol for surgery or remain awake. She requests the absolute minimum anesthesia option available expressing even if this involves "being awake, having discomfort or increased work for the anesthesia team" due to gradual, persistent memory changes after procedures in recent years. She originally requested having "earbuds" in for procedure, but then realized she could not connect them to her phone. I discussed with her various degrees of anesthesia sedation and neuraxial anesthesia and ultimate discussion with assigned anesthesiologist am DOS. She verbalized understanding and expressed comfort with plan, denied additional questions or concerns. - cardiology office visit 09/02/23 [place]: "...Palpitations: Although her palpitations are quite intermittent I would like to get a Holter monitor to get a sense for her background ectopy. We can put that on today. If she has symptoms we can see what they are, if not and we are still concerned about these intermittent symptoms we can consider longer-term monitoring. Chest discomfort: Her chest discomfort is quite atypical for coronary artery disease however she does have a carotid plaque, she does have a somewhat abnormal cholesterol profile and she is in an age group where she certainly could have coronary artery disease. I hesitate to do a catheterization, a CT calcium score might be helpful. If it shows a lot of calcification we may need to proceed to catheterization, if not it might be helpful for prognosis. We can reevaluate things once we have these studies..." [place] cardio f/u notation 06/15/24: "The study showed mild or minimal plaque in her coronary arteries but it did not appear to be significant enough to be obstructing blood flow, which is good news. Findings are common for someon e in her age group...Pt notified. She will call back if she wants to reschedule..." - Outpatient joint pathway: Patient originally requested outpatient joint pathway. Nikia with surgeon's office advised 08/23 that patient now wants to remain overnight and they are changing surgery booking. OR made aware. - Patient requested additional information regarding information/records releases/disclosures. Jessica Bradley spoke with patient several times and Raimundo Gilcaio reviewed usual/standard patient paperwork completed by patient and advised could proceed. Patient reported she was agreeable to proceed with visit and did not want to do specific requests/disclosure for today's visit. Surgeon's office and OR also made aware. Chart Review Chart Review: Acceptable Risk for Surgery and Patient seen in Pre Admission Testing Teaching & Discussion Pre-Anesthesia Teaching/Discussion Notes: Instructed NPO after midnight before surgery, except medications with 15 cc of water. Medication instructions provided according to the PAT guidelines. History Surgery Operation Date: 09/13/24 08:50 Proposed Procedures p Right Total Knee Arthroplasty and Hardware Removal - Bubba Dumont MD s Removal Hardware Knee Right - Bubba Dumont MD Height/Weight Height: 4 ft 10.5 in Weight: 69.4 kg Allergies Allergy/AdvReac Type Severity Reaction Status Date / Time No Known Drug Allergies Allergy Verified 08/16/24 08:22 Medications Home Medications Medication Instructions Recorded Confirmed Last Taken rabeprazole 20 mg tablet,delayed 20 mg PO QAM 08/10/23 08/23/24 08/19/23 05:50 release levothyroxine 75 mcg tablet 75 mcg PO QAM hypothyroid #90 tabs 02/16/24 08/23/24 Unknown sertraline 100 mg tablet 150 mg (1.5 x 100 mg) PO QAM #135 05/24/24 08/23/24 Unknown tabs cholecalciferol (vitamin D3) 125 125 mcg PO UD 08/16/24 08/23/24 Unknown mcg (5,000 unit) tablet (Vitamin D3) mecobalamin (vitamin B12) 1,000 1,000 mcg PO UD 08/16/24 08/23/24 Unknown mcg chewable tablet Past Medical History Medical History (Updated 08/23/24 @ 15:28 by ISAAC Garcia) Aching leg syndrome of right lower extremity chronic, denies change or worsening Anemia Anxiety and depression Carotid artery plaque states no current issues, monitored by pcp Decreased hearing Degenerative arthritis of knee, bilateral Degenerative joint disease, right, foot Dyslipidemia Dysphagia resolved per pt GERD (gastroesophageal reflux disease) controlled, stable per pt History of anesthesia reaction pt reports each time she undergos anesthesia, she has memory issues, states she tries to get "as little anesthesia as possible" History of GI bleed (~2022) Hx of breast cancer dcis right breast no chemo/radiation-no limb restriction Hx of sleep apnea used a cpap in past- told no longer needed to use- >15 years ago Hyperglycemia Hypothyroidism IT band syndrome Memory changes Patient states worsening of memory impairment with anesthesia in the past, requests minimal amount of anesthesia when possible Obesity, Class I, BMI 30-34.9 Postmenopausal atrophic vaginitis Patient denies h/o stroke, seizures, heart attack, heart failure, DM, HTN, blood clots/DVTs or blood transfusions. Exercise / Class Metabolic Activity II 4-5 Yardwork/Stairs/Walk up hill (denies chest discomfort or shortness of breath with one flight of stairs) Past Family History Family History Mother Brain cancer Other Allergies Asthma Cancer Heart disease Hypertension No family history of adverse response to anesthesia No family history of bleeding disorder Denies family history of Ovarian cancer Prostate cancer Myocardial infarction Breast cancer Colorectal cancer Past Surgical History Surgical History History of cataract surgery bilat History of cholecystectomy (2020) 05/12/2021 Grade 3 view, MAC 3, ETT 7.5 History of colonoscopy History of esophagogastroduodenoscopy (EGD) having repeat at [facility] on 08/26/24 Hx of arthroscopy right and left knees - repair of acl and torn meniscus Hx of carpal tunnel repair right / left Hx of lumpectomy right breast- no limb restrictions Hx of tooth extraction wisdom teeth S/P trigger finger release 02/24/22 left done at same time as LTKA trigger finger surgery on both right and left hands x 6 Status post total left knee replacement (02/24/22) 02/24/2022- also had surgery on left knee with dr. pena approx 15-20 years ago- "high tibial osteotomy" Past Anesthesia History Other (see above) History of PONV No Hx of PONV and No Hx of Motion Sickness Social History Smoking Status: Never smoker Do You Dip or Chew Tobacco: No Hx Alcohol Use: Yes (1-2 glasses of wine weekly ) Alcohol type: wine alcohol intake frequency: holidays/special occasions only Hx Substance Use: No substance use type: does not use Review of Systems Patient denies chest pain, shortness of breath, dyspnea on exertion, fever, chills, cough, wheezing, or palpitations. Physical Exam Vital Signs Vitals BP 138/61 P 67 TEMP 98.4 SP02 96% on RA RESP 18 Physical Patient resting comfortably in chair in no acute distress, alert and oriented, responding appropriately throughout visit Full cervical extension range of motion without pain TMD 3.5 finger breadths Mallampati Score 2 Dentition: several caps/crowns and permanent upper bridge; denies chipped or loose teeth, or implants Lungs: normal respiratory effort. Good air movement, clear throughout to auscultation, no adventitious breath sounds Cardiac: regular rate and rhythm, no murmurs noted Carotid arteries: negative bruit bilat Lab Results Anesthesia Preop Results Results Anesthesia Widget: WBC 6.10 K/ul (4.8-10.8) 08/22/24 Hgb 11.7 g/dl (12.0-16.0) L 08/22/24 Hct 37.8 % (37.0-47.0) 08/22/24 Plt 197 K/uL (130-400) 08/22/24 Na 139 mmol/L (136-145) 08/22/24 K 4.9 mmol/L (3.5-5.1) 08/22/24 Cl 105 mmol/L (98-107) 08/22/24 CO2 29 mmol/L (21-32) 08/22/24 BUN 22 mg/dl (6-23) 08/22/24 Creat 0.80 mg/dl (0.6-1.2) 08/22/24 Glucose Level 100 mg/dl (70-99(Fasting)) H 08/22/24 PT 10.3 Seconds (9.0-12.0) 08/22/24 PTT 24 Seconds (21-31) 08/22/24 INR 0.9 (0.9-1.1) 08/22/24 Urine Appearance Clear 08/23/24 Blood Type A Positive 08/22/24 Antibody Screen NEGATIVE 08/22/24 Testing Electrocardiogram Date: 08/22/24 Sinus bradycardia, rate 59 bpm Chest X-Ray Date: 08/22/24 No acute findings. Echocardiogram Date: 08/28/23 EF 60-65% No regional wall motion abnormalities No LVH Mild mitral regurgitation Mildly dilated ascending aorta 4.2 cm Grade I diastolic dysfunction Other Testing CT calcium score 02/18/24 Agatston calcium score of 20, corresponding to the 50th percentiles for age, gender, and ethnicity, implying that 50% of the females at the ages from 66-70 will have a higher calcium score...at least mild atherosclerotic plaque is present Mild or minimal coronary narrowings are likely Coronary artery calcium is present in LAD Ectasia of the ascending thoracic aorta Moderate hiatal hernia Cardiac event monitor 09/10/23 Sinus throughout with a minimum heart rate of 47 bpm, max 153 and average 71 bpm Blunted diurnal heart rate variation 8 isolated premature ventricular beats with no couplets or runs 394 isolated premature supraventricular beats with 11 couplets and 17 runs, the longest was 19 beats Fastest was 153 bpm Most, but not all, of the supraventricular runs occurred between midnight and noon No pauses in excess of 2.0 seconds
--- NOTE | 2024-09-08 07:57 | History & Physical Report ---
Date of Service September 08, 2024 Assessment & Plan (1) Right knee DJD: 68-year-old female with history of multiple knee surgeries in the past including a left knee replacement and previous right ACL reconstruction with right knee DJD. She has failed conservative treatment. It is affecting her quality life and she just like to have her right knee fixed. Plan: We are going to take her to the operating room and do a right knee replacement. We may need to The Hardware. The Risk and Benefits Procedure Explained. Informed Consent Was Obtained. Will Use Aspirin for DVT Prophylaxis. She Is Hoping for Minimal Sedation throughout Her Surgery. She Is Ale Stay in the Hospital Overnight. She Is Going to Use [employer] [facility] for Home Health and PT Afterwards. She Is Going Arranges on Her Own. She Will Use Crutches As Opposed to a Walker. I Will See Her Back 2 Weeks Postop. (2) Dyslipidemia: (3) Gastroesophageal reflux disease: (4) History of breast cancer: (5) Hypothyroidism: History of Present Illness Chief Complaint: . Persistent right knee pain and discomfort. Primary Care Provider: Kyra Uribe MD . The patient is a 5-year-old female long-term patient of mine who presents for surgical treatment of her right knee. She has a long history of knee problems and we actually did a left knee replacement on her about a year and a half ago. She had a history of multiple surgeries on both knees. With respect to the right knee she had an ACL reconstruction by Dr. Beck in September 2012. Over the past year she developed increased pain discomfort. She has had some days where she is having trouble walking on it at all. She would like to stay active. She would like to have her knee fixed. Allergies Allergy/AdvReac Type Severity Reaction Status Date / Time No Known Drug Allergies Allergy Verified 08/16/24 08:22 Home Medications Medication Instructions Recorded Confirmed Type rabeprazole 20 mg tablet,delayed 20 mg PO QAM 08/10/23 08/23/24 History release levothyroxine 75 mcg tablet 75 mcg PO QAM hypothyroid #90 tabs 02/16/24 08/23/24 Rx sertraline 100 mg tablet 150 mg (1.5 x 100 mg) PO QAM #135 05/24/24 08/23/24 Rx tabs cholecalciferol (vitamin D3) 125 125 mcg PO UD 08/16/24 08/23/24 History mcg (5,000 unit) tablet (Vitamin D3) mecobalamin (vitamin B12) 1,000 1,000 mcg PO UD 08/16/24 08/23/24 History mcg chewable tablet Past Med/Surg History Problem List Renal lesion Microscopic hematuria Overactive bladder Right knee DJD Carotid artery plaque Sensorineural hearing loss (SNHL) of left ear with unrestricted hearing of right ear De Quervain's tenosynovitis, left Vitamin B 12 deficiency Chronic osteoarthritis (Acute) Depression with anxiety (Acute) Dyslipidemia (Acute) Gastroesophageal reflux disease (Acute) History of breast cancer (Acute) Hypothyroidism (Acute) Vitamin D deficiency disease (Acute) Medical History History of GI bleed (~2022) Dyslipidemia Hx of sleep apnea used a cpap in past- told no longer needed to use- >15 years ago History of anesthesia reaction pt reports each time she undergos anesthesia, she has memory issues, states she tries to get "as little anesthesia as possible" Hyperglycemia IT band syndrome Degenerative joint disease, right, foot Anemia Decreased hearing Obesity, Class I, BMI 30-34.9 Postmenopausal atrophic vaginitis Dysphagia resolved per pt Aching leg syndrome of right lower extremity chronic, denies change or worsening Hypothyroidism Anxiety and depression Memory changes Patient states worsening of memory impairment with anesthesia in the past, requests minimal amount of anesthesia when possible Carotid artery plaque states no current issues, monitored by pcp GERD (gastroesophageal reflux disease) controlled, stable per pt Degenerative arthritis of knee, bilateral Hx of breast cancer dcis right breast no chemo/radiation-no limb restriction Surgical History S/P trigger finger release 02/24/22 left done at same time as LTKA trigger finger surgery on both right and left hands x 6 Status post total left knee replacement (02/24/22) 02/24/2022- also had surgery on left knee with dr. pena approx 15-20 years ago- "high tibial osteotomy" History of cataract surgery bilat History of esophagogastroduodenoscopy (EGD) having repeat at [facility] on 08/26/24 History of colonoscopy History of cholecystectomy (2020) 05/12/2021 Grade 3 view, MAC 3, ETT 7.5 Hx of tooth extraction wisdom teeth Hx of arthroscopy right and left knees - repair of acl and torn meniscus Hx of carpal tunnel repair right / left Hx of lumpectomy right breast- no limb restrictions Family History Mother Brain cancer Other Allergies Asthma Cancer Heart disease Hypertension No family history of adverse response to anesthesia No family history of bleeding disorder Denies family history of Ovarian cancer Prostate cancer Myocardial infarction Breast cancer Colorectal cancer Social History Smoking Status: Never smoker Second Hand Exposure: No; Do You Dip or Chew Tobacco: No; Hx Alcohol Use: Yes (1-2 glasses of wine weekly ) Alcohol type: wine Alcohol Intake Frequency: 2-3 x/Week Hx Substance Use: No Preferred Language: [place] Communication Ability: Effective Visual Impairment: No Limitations Hearing Ability: Normal Punching Machine Operator Required: No Beliefs That Will Affect Care: None marital status: Current Living Situation: Other Current Living Situation Comment: pt refused to answer, states "why do you need to know this?" current occupational status: retired Feels Safe at Home: Yes Childhood Exposure to Second-Hand Smoke: No Dental Care, Regularly: Yes Physical Activity Frequency: 3-4 Times per Week Seatbelt Use: always Sunscreen Use: Yes Assistive Devices: Glasses Review of Systems All systems reviewed & are unremarkable except as noted in HPI & below. Physical Exam . Physical examination reveals a pleasant middle-aged female. Looks to be in good health. Examination of the right knee reveals patient walks independently. She got well-healed scars around her knee. Small knee effusion. Range of motion is 0-1 25. There is no instability. No particular pain with hip motion. Examination left knee reveals a well-healed incision. She is got good straight leg raise. Range of motion 0-1 25. Constitutional WD/WN, vitals as above Respiratory normal respiratory effort, lungs clear to auscultation Cardiovascular RRR, no murmur, no edema Gastrointestinal (Abdomen) normal bowel sounds, soft, nontender, no hepatosplenomegaly Results & Data Results & Data Laboratory Results . Diagnostic Findings . X-rays of the right knee were reviewed. Shows advanced right knee DJD. She got near complete loss of medial joint space. She has evidence of the previous ACL reconstruction. She has a bone lock screw in [employer]her[employer] screw in her parents screw on the femur. PG Care Time/CCT Total # of Minutes Spent Total Time Spent with Patient: Total time spent is greater than 50% in coordination of care (as documented) at patient's floor/unit and/or counseling patient: Coding Level of Care Code None Diagnoses Right knee DJD M17.11 Dyslipidemia E78.5 Gastroesophageal reflux disease K21.9 History of breast cancer Z85.3 Hypothyroidism E03.9
[2024-09-13] MEDS: ACETAMINOPHEN 500 MG TAB PO SCH ×2 (10:44→20:29)
[2024-09-13] MEDS: dexAMETHasone**PF** 10 MG/ML VIAL IV SCH (10:44)
[2024-09-13] MEDS: METOCLOPRAMIDE HCL 10 MG TABLET PO SCH (10:45)
[2024-09-13] MEDS: LR 60ML/HR IV SCH (10:45)
[2024-09-13] MEDS: CeleBREX 200 MG CAP PO SCH (10:45)
[2024-09-13] MEDS: FAMOTIDINE 20 MG TAB PO SCH (10:45)
[~2024-09-13 10:48] MED LIST changes: -ACETAMINOPHEN 500 MG TAB PO SCH; +BUPIVACAINE 0.5 % 5 MG/1 ML PF 10ML VIAL ONE; -BUPIVACAINE LIPOSOME/PF 266 MG, BUPIVACAINE/EPINEPHRINE 50 ML, SODIUM CHLORIDE 0.9% 30 ... INFIL SCH; -CeleBREX 200 MG CAP PO SCH; -FAMOTIDINE 20 MG TAB PO SCH; +LIDOCAINE 2% 2 ML VIAL/AMP(20MG/ML) INFIL ONE; -LR 500ML BOLUS, THEN 15ML/HR IV SCH; -LR 60ML/HR IV SCH; -METOCLOPRAMIDE HCL 10 MG TABLET PO SCH; +MIDAZOLAM HCL 1 MG/ML 2ML VIAL ONE; +ONDANSETRON INJ 2 MG/ML 2 ML VIAL ONE; +PROPOFOL IV EMULSION 10 MG/ML 20 ML VIAL IV ONE; +ROPIVACAINE 0.5% 5 MG/ML 30 ML VIAL ONE; -Scopolamine 1 MG TDSY TD SCH; -TRANEXAMIC ACID 1,000 MG **IV Intra-op IV SCH; -ceFAZolin 2000MG 2,000 MG/15 ML SYR IV SCH
--- NOTE | 2024-09-13 10:58 | History & Physical Bridge Note ---
Date of Service September 13, 2024 History & Physical Bridge Note I have examined the patient, reviewed the History & Physical and in the interval since the performance of the History & Physical I have noted the following changes of clinical significance: no changes noted
[2024-09-13] MEDS: LR 500ML BOLUS, THEN 15ML/HR IV SCH (11:11)
[2024-09-13] MEDS ORDERED: BUPIVACAINE 0.5 % 5 MG/1 ML PF 10ML VIAL ONE (13:14)
[2024-09-13] MEDS: ROPIV 0.5% 246mg, Ketorolac 30mg, EPINEPHrine 0.5mg in NSS INFIL SCH (14:01)
--- NOTE | 2024-09-13 14:28 | Communication Note ---
Date of Service: September 13, 2024 Preoperatively, pt had expressed concerns about cognitive changes after anesthesia. After lengthy discussion however, she agreed to be sedated in a routine manner for SAB, ACB and surgery. SAB was performed in HR. After transport to OR, it was evident that pt did not have sympathectomy, nor sensory nor motor block. Elected to repeat SAB. This was accomplished and surgery began without further difficulty.
[2024-09-13] MEDS ORDERED: ONDANSETRON INJ 2 MG/ML 2 ML VIAL IV PRN ×2 (14:33→16:49)
[2024-09-13] MEDS ORDERED: HYDROmorphone INJ 2 MG/ML SYR/VIAL IV PRN (14:33)
[2024-09-13] MEDS ORDERED: PROMETHAZINE HCL 6.25 MG in SODIUM CHLORIDE 0.9% 50 ML IV PRN (14:33)
[2024-09-13] MEDS ORDERED: ATROPINE SULFATE 0.1 MG/ML 10ML SYR IV PRN (14:33)
[2024-09-13] MEDS: VANCOMYCIN HCL 1000MG/20ML VIAL ONE (14:35)
[2024-09-13] MEDS: ORTHO JOINT ANESTHETIC ONE (14:54)
--- NOTE | 2024-09-13 15:10 | Operative Report ---
PG Post Operative Report Pre & Post Diagnosis Operation Date: 09/13/24 12:30 Pre-Op Diagnosis: Right Knee Osteoarthritis Post-Op Diagnosis: Right Knee Osteoarthritis I identified the patient and participated in the time-out.: Yes Procedure Operation Date: 09/13/24 12:30 Actual Procedures p Right Total Knee Arthroplasty with Hardware Removal(Right) - Bubba Dumont MD Surgeon Bubba Dumont MD Rack Washer Florin Nunez PA-C Estimated Blood Loss 50 Findings Consistent with Post-Op Diagnosis Specimens Right knee sent for pathology. Anesthesia Type Spinal MAC Complications none Disposition Accompanied Patient To Recovery: No Indications The patient is a 68-year-old very active female with a long history of knee problems. She has had multiple surgeries on both knees and had a left knee replaced in the past. Over the past year she developed increased pain and discomfort in the right knee. She elected proceed with surgical management. Does have a history of ACL reconstruction in this knee in the past and had retained hardware which had to be removed. Description of Procedure Operative implants consist of: 1 Biomet Vanguard size 65 right posterior stabilized femoral component. 2. Biomet size 63 tibial tray. 3. 10 mm posterior stabilized polyethylene insert. 4. 25 x 8 all poly patella. The patient was taken to the op room, identified, placed on the operating table in the supine position. All conductors were appropriately padded. IV antibiotics were by anesthesia team. A spinal anesthetic had been implemented holding area. The Escalera catheter was placed in sterile fashion. At this point the patient was still moving her legs where they did set her back up and placed a second attempt at a spinal anesthetic which was more successful. Right thigh high tourniquet was then placed. The right lower extremity was then prepped and draped in usual sterile fashion. The right leg was elevated and exsanguinated with use of an Esmarch and the turn was placed at 300 mmHg. An anterior approach of the right knee was then performed to longitudinal incision centered over the patella. Sharp dissection was Through subcutaneous tissue down the extensor mechanism. A medial parapatellar arthrotomy incision was made. Some subperiosteal dissection was carried out medially. The fat pad was dissected from the patella tendon. The lateral patellofemoral ligament was released. Upon doing the subperiosteal dissection medially, we ran [facility] plate device. It was again immediately taken out so we easily backed this out with the screwdriver and then use a small osteotome around the washer and then remove that. Patella subluxated laterally and the knee was flexed. The osteophytes taken off distal femur. The ACL and PCL were then released from the distal femur. The tibia subluxated anteriorly. The external tibial alignment jig was then placed on the anterior face of the tibia and adjusted 14 mm medially. Proximal tibial cut was made to move about 2 mm of bone from the medial side. Tibia sized to a size 63. Attention drawn the femur. The distal femur was entered with a sharp drill. The intramedullary canal was suction. A right 5 degree valgus cutting guide was placed. The distal femoral cutting block was pinned in place. The distal femoral cut was made to take an additional 3 mm of bone off distal femur. The femur was then sized to a size 65. The AP cutting block was pinned parallel to the epicondylar axis which was 4 degrees of external rotation. Anterior cut, anterior chamfer, posterior cut, posterior chamfer cuts were made. The box cutting guide was placed and just slight lateral and the box cut was made. The knee was flexed. The remnants of the medial and lateral menisci were excised. The osteophytes taken off the posterior aspect of femur. A trial femoral component was placed. Tibial tray was pinned in Dolores external rotation and the drill and stem punch were used to create defect in proximal tibia for the tibial tray. The knee was then trialed and the 10 mm insert fit most appropriately. Attention drawn the patella. The patella was cleaned of all soft tissues. Patella was quite petite. It was about 18 mm in thickness was cut down to about 12. It was sized to a size 25 patella. The lug holes were drilled for the 25 patella. The lateral osteophytes removed. Patella button was placed. Knee was taken through range of motion patella tracked nicely with no thumbs test. Attention then drawn to placement permanent components. All trial components were removed. Bone plug was placed into this femur limit blood loss. A double batch Palacos G cement was mixed. I did add an additional gram of vancomycin to her as cement due to her history of surgery in the past. A BiomZoopguard size 65 right posterior stabilized femoral component, size 63 tibial tray, a 10 mm posterior by polyethylene insert, and a 25 x 8 all poly patella then cemented in place. The knee was brought out into full extension till cement hardened. A final cement check was then performed. Pericapsular tissues were injected with total 100 cc of Ortho mix. Patient did receive 1 g tranexamic acid. The tourniquet was then let down for final tourniquet time 63 minutes. Hemostasis assured with electrocautery. Extensor Meclomen then closed with combination 1 PDS suture and 1 Vicryl suture in a figure of 8 fashion. The subcutaneous tissue was then closed with 2 Dexon suture in a buried erupted fashion skin was closed skin hugh. Leg was then cleaned and dried and a sterile dressing with Xeroform, 4 fours, sterile cast padding, Krish bandage were applied. Patient then transferred to the recovery in stable condition. Patient tolerated procedure well and there are no complications. Florin Nunez, my physician elder assistant, was present for the entire procedure. His assistance was required for proper patient positioning, prepping and draping, surgical exposure, retraction, perform the technical details of the operation, placement of the implants, closure of the incision site, and placement of postoperative sterile bandage. I attest to the content of the Intraoperative Record and any orders documented therein. Any exceptions are noted below.
--- NOTE | 2024-09-13 15:32 | XRay Report ---
XR knee RT 1 or 2V routine CLINICAL HISTORY: Surgical Post Op COMPARISON: None FINDINGS: Right knee prosthesis shows no hardware complication. There is expected soft tissue gas. S kin hugh are present. IMPRESSION: Unremarkable postoperative exam. ACT 112: Negative or not required by law. Electronically signed by: Scott Madrid M.D. 09/13/2024 3:31 PM
--- NOTE | 2024-09-13 16:28 | Anesthesiology Progress Note ---
Date of Service September 13, 2024 Anesthesia Post Procedure Vital Signs Vital Signs: Temp Pulse Pulse Resp BP Pulse Ox O2 Del Method 09/13/24 16:20 57 L 15 136/57 L 100 Room Air 09/13/24 16:10 58 L 18 127/66 100 Room Air 09/13/24 16:00 62 20 133/69 100 Room Air 09/13/24 15:50 59 L 14 125/83 100 Room Air 09/13/24 15:40 36.5 C 59 L 23 127/66 98 Room Air 09/13/24 15:30 63 14 109/63 100 Room Air 09/13/24 15:20 64 22 117/59 L 100 Room Air 09/13/24 15:10 36.3 C L 69 27 H 121/50 L 100 Oxymask 09/13/24 10:42 36.9 C 70 20 126/67 97 Room Air O2 Flow Rate 09/13/24 16:20 09/13/24 16:10 09/13/24 16:00 09/13/24 15:50 09/13/24 15:40 09/13/24 15:30 09/13/24 15:20 09/13/24 15:10 10 09/13/24 10:42 Transfer of Care Handoff Completed per policy Notes Mental Status: alert / awake / arousable and participated in evaluation Patient Amnestic to Procedure: Yes Nausea / Vomiting: adequately controlled Pain: adequately controlled Airway Patency, RR, SpO2: stable & adequate BP & HR: stable & adequate Hydration State: stable & adequate Anesthetic Complications: no major complications apparent and Pt Satisfied with anesthetic care
[2024-09-13] MEDS ORDERED: HYDROmorphone INJ 0.5 MG/0.5 ML SYR IV PRN (16:49)
[2024-09-13] MEDS ORDERED: METOCLOPRAMIDE HCL INJ 5 MG/ML 2 ML VIAL IV PRN (16:49)
[2024-09-13] MEDS ORDERED: NALOXONE HCL 0.4 MG/1 ML VIAL/CARP IV PRN (16:49)
[2024-09-13] MEDS ORDERED: MAGNESIUM HYDROXIDE SUSP 30 ML UDC PO PRN (16:49)
[2024-09-13] MEDS ORDERED: ALUMINUM/MAGNESIUM SUSP 30 ML UDC PO PRN (16:49)
[2024-09-13] MEDS: SODIUM CHLORIDE 0.9% 1,000 ML IV SCH (17:05)
[2024-09-13] MEDS: ASCORBIC ACID 500 MG TAB PO SCH (17:56)
[2024-09-13] MEDS: KETOROLAC TROMETHAMINE 15 MG/ML VIAL IV SCH (17:57)
[2024-09-13] MEDS: TRANEXAMIC ACID / 0.7% NACL 1,000 MG/100 ML BAG IV SCH (20:27)
[2024-09-13] MEDS: ASPIRIN 81 MG ECTAB PO SCH (20:29)
[2024-09-13] MEDS: SENNA 8.6 MG TAB PO SCH ×2 (20:30)
[2024-09-13] MEDS: DOCUSATE SODIUM 100 MG CAP PO SCH (20:30)
[2024-09-14] MEDS: LEVOTHYROXINE SODIUM 75 MCG TABLET PO SCH (05:38)
[2024-09-14 07:53] LABS: Hematocrit (blood only) 33.8 % (37.0-47.0); Hemoglobin 10.9 g/dl (12.0-16.0); Mean Corpuscular Hemoglobin 27.1 pg (25.0-34.0); Mean Corpuscular Volume 84.1 fL (80.0-100.0); Platelet Count 208 K/uL (130-400); RDW Standard Deviation 44.4 fL (36.4-46.3); Red Blood Count 4.02 M/uL (4.20-5.40); White Blood Count 9.73 K/ul (4.8-10.8)
[2024-09-14] MEDS: CYANOCOBALAMIN (B-12) 500 MCG TABLET PO SCH (08:02)
[2024-09-14] MEDS: dexAMETHasone 10 MG in SYRINGE 0 ML IV SCH (08:02)
[2024-09-14] MEDS: SERTRALINE HCL 50 MG TABLET PO SCH (08:02)
[2024-09-14] MEDS: MULTIVITAMIN TAB PO SCH (08:02)
[2024-09-14] MEDS: CHOLECALCIFEROL 125 MCG (5,000 UNITS) TAB PO SCH (08:03)
[2024-09-14 08:15] VITALS: BP 118/80; PULSE 80; RESP 12; TEMP 98.1; O2SAT 98
[2024-09-14 08:18] LABS: Anion Gap 5.0 (3-11); Blood Urea Nitrogen 18.0 mg/dl (6-23); Calcium 8.5 mg/dl (8.6-10.3); Carbon Dioxide 29.0 mmol/L (21-32); Chloride 104.0 mmol/L (98-107); Creatinine Clr Calc Pharmacy 46.2 ml/min; Glucose 95.0 mg/dl (70-99(Fasting)); Potassium 3.8 mmol/L (3.5-5.1); Sodium 138.0 mmol/L (136-145)
--- NOTE | 2024-09-14 08:37 | Orthopedic Progress Note ---
Date of Service September 14, 2024 Assessment & Plan (1) Status post total right knee replacement: * Continue Current Treatment * [id number]: Home * Daily treatment: Physical Therapy/ Occupational Therapy per protocol * Weight bearing status: WBAT * Continue to monitor for ABLA * Pain control * DVT prophylaxis, ASA * Office/hospital f/u 2 weeks for progress check and staple/suture removal * Plan for discharge today pending PT/OT clearance Subjective . Active Problems: S/p right TKA POD 1 68 y/o female s/p right TKA. Doing well overall, pain managed and improved function. Slight temperature elevation overnight, but no outright fever/chills, chest pain/SOB, nausea/vomiting. Otherwise no complaints. Review of Systems All systems reviewed & are unremarkable except as noted in HPI & below. Physical Exam . * General: Alert and oriented, no acute distress * Constitutional: well-developed, well-nourished. * Respiratory: Normal respiratory effort, no distress * Gastrointestinal: No tenderness to palpation, no rigidity or guarding. * Skin: No rash or lesion. * Neurologic: Grossly normal * Musculoskeletal: Right knee surgical dressing CDI, not removed for exam. Otherwise no obvious deformity or overlying skin changes RLE. Diffuse TTP distal thigh and knee region. Otherwise no specific tenderness of proximal thigh, lower leg, foot/ankle. AROM knee flexion 0-110 degrees. AROM foot/ankle intact. Sensation intact plantar/dorsal foot. Brisk capillary refill. Results & Data Results & Data Laboratory Results . Diagnostic Findings Knee X-Ray 09/13/24 15:06 XR knee RT 1 or 2V routine CLINICAL HISTORY: Surgical Post Op COMPARISON: None FINDINGS: Right knee prosthesis shows no hardware complication. There is expected soft tissue gas. Skin hugh are present. IMPRESSION: Unremarkable postoperative exam. ACT 112: Negative or not required by law. Electronically signed by: Scott Madrid M.D. 09/13/2024 3:31 PM PG Care Time/CCT Total # of Minutes Spent Total Time Spent with Patient: Total time spent is greater than 50% in coordination of care (as documented) at patient's floor/unit and/or counseling patient: Coding Level of Care Code 62416 Post Operative Follow-Up Diagnoses Status post total right knee replacement Z96.651
== END 2024-09-14 10:11 | disposition home or self-care (01) ==
LOC: ASU 10:48 → 3E 10:48